=== PATIENT | female | born 1945 | race Caucasian/White ===

== ENCOUNTER 2017-12-27 15:09 | Inpatient (IN) | payer OTHER ==
[~2017-12-27] VITALS: Ht 160 cm; Wt 61.2 kg
--- NOTE | 2017-12-27 15:17 | NUR ---
PATIENT BIB BLS TO BED 9
[2017-12-27] MEDS ORDERED: NACL 0.9% 2,000 ML IV SCH (15:19)
[2017-12-27 15:20] VITALS: BP 80/46
[2017-12-27] MEDS ORDERED: ALBUTEROL 0.083% 2.5 MG/3 ML NEBU INH ONE (15:20)
[2017-12-27] MEDS ORDERED: methylPREDNISolone SS 125 MG/2 ML VIAL IVP ONE (15:30)
[2017-12-27] MEDS ORDERED: FAMOTIDINE 20 MG/2 ML VIAL IVP ONE (15:30)
[2017-12-27] MEDS ORDERED: FURO-572 PO (15:45)
[2017-12-27] MEDS ORDERED: OMEP20TC12 PO (15:45)
[2017-12-27] MEDS ORDERED: SYN.075 PO (15:45)
[2017-12-27] MEDS ORDERED: ALBU-118 IH (15:45)
[2017-12-27] MEDS ORDERED: METO25TE2 PO (15:45)
--- NOTE | 2017-12-27 15:51 | NUR ---
3 ATTEMPTS AT DRAWING ABGS WERE ATTEMPTED WITH NO SUCCESS DUE TO POOR BLOOD PRESSURE. BLOOD FLOW STOPPED BEFORE FILLING 1/2 CCS. PER MD REQUEST, ONCE BLOOD PRESSURE RISES, ABG WILL BE ATTAMPTED AGAIN.
--- NOTE | 2017-12-27 16:00 | NUR ---
RT AT BEDSIDE
--- NOTE | 2017-12-27 16:00 | NUR ---
PATIENT PRESENTS TO ED WITH BROUGHT IN BY EMS S/P SYNCOPE WHILE SHOPPING PT IN C-COLLAR SPINAL PRECAUTIONS EMS REPORTED PT HAD A LARGE EMESIS AND STOOL INCONTINENCE AT SYNCOPE ----LARGE AMOUNT OF LOOSE STOOL FROM BACK DOWN TO FEET DRY EMESIS TO CHIN AND CHEST--- AWAKE ANSWERING QUESTIONS BUT SLOW TO RESPOND AT THIS TIME---MOVING ALL EXTREMITIES EQUALLY. CURRENTLY DENIES HEADACHE OR N/V SKIN IS PINK/WARM/DRY;; LUNGS CLEAR BL; HR EVEN AND REGULAR; PT DENIES ANY FEVER, CP, SOB, OR COUGH AT THIS TIME; PATIENT STATES PAIN OF 0/10 AT THIS TIME; VSS; PATIENT POSITIONED FOR COMFORT; HOB ELEVATED; BEDRAILS UP X2; BED DOWN. ER MD MADE AWARE OF PT STATUS.
--- NOTE | 2017-12-27 16:02 | NUR ---
PT CLEANED WITH SOAPY WATER WITH HELP AND LOG ROLLED PT REQUIRED. PT ADMITS TOLERATED WITH MINIMAL TO NO DISCOMFORT. CONTINUES TO DENIE PAIN AT THIS TIME---- PT ADMITS FELT FAINT, DIZZY PRIOR TO SYNCOPE
--- NOTE | 2017-12-27 16:09 | NUR ---
LAB COLLECTING SAMPLES
--- NOTE | 2017-12-27 16:13 | NUR ---
CXR AT BEDSIDE
[2017-12-27 16:25] LABS: BASOPHILS % (AUTO) 0.2 % (0.0-2.0); EOSINOPHILS # (AUTO) 0.3 K/uL (0-0.4); EOSINOPHILS % (AUTO) 2.2 % (0.0-4.0); HEMATOCRIT 43.8 % (36-48); HEMOGLOBIN 14.5 g/dL (12.0-16.0); LYMPHOCYTES # (AUTO) 1.7 K/uL (2.5-16.5); LYMPHOCYTES % (AUTO) 12.9 % (20.5-51.1); MEAN CORPUSCULAR HEMOGLOBIN 31 pg (27-31); MEAN CORPUSCULAR HGB CONC 33 g/dL (33-37); MEAN CORPUSCULAR VOLUME 93.7 fL (80-94); MONOCYTES # (AUTO) 0.8 K/uL (0.8-1.0); MONOCYTES % (AUTO) 6.2 % (1.7-9.3); NEUTROPHILS # (AUTO) 10.4 K/uL (1.8-7.7); NEUTROPHILS % (AUTO) 78.5 % (42.2-75.2); PLATELET COUNT (AUTO) 227 K/uL (140-450); RED BLOOD CELL COUNT(AUTO) 4.68 MIL/uL (4.20-5.40); RED CELL DISTRIBUTION WIDTH 14.8 % (11.6-13.7); WHITE BLOOD COUNT (AUTO) 13.2 K/uL (4.8-10.8)
[2017-12-27] MEDS ORDERED: AZTREONAM 1,000 MG in DEXTROSE 5% 50 ML IV SCH (16:25)
[2017-12-27 16:48] LABS: ANION GAP 9.3 (8-16); CARBON DIOXIDE 30.3 mmol/L (21-32); CHLORIDE 106 mmol/L (98-107); CREATININE 1.3 mg/dL (0.6-1.3); GLUCOSE 101 mg/dL (74-106); POTASSIUM 3.6 mmol/L (3.5-5.1); SODIUM SERUM 142 mmol/L (136-145); UREA NITROGEN, BLOOD 23 mg/dL (7-18)
--- NOTE | 2017-12-27 16:49 | NUR ---
C-SPINE PRECAUTIONS CLEARED BY ---C-COLLAR REMOVED BY . PT ALERT HOLDS CONVERSATION WITH ME--DENIES HEADACHE, DIZZINESS, OR NAUSEA AT THIS TIME. WILL CONTINUE TO MONITOR FOR ANY CHANGES
[2017-12-27 16:50] LABS: PROTHROMBIN TIME 9.7 secs (10.8-13.4)
[2017-12-27 16:52] LABS: MAGNESIUM 2.3 mg/dL (1.8-2.4)
[2017-12-27 16:59] LABS: APPEARANCE,URINE CLEAR (CLEAR); BILIRUBIN,URINE NEGATIVE (NEGATIVE); BLOOD, URINE NEGATIVE (NEGATIVE); COLOR,URINE YELLOW (YELLOW); LEUKOCYTE ESTERASE ,URINE TRACE (NEGATIVE); NITRITE, URINE NEGATIVE (NEGATIVE); PH,URINE 6.5 (5.0-9.0); UGLUCOSE NEGATIVE (NEGATIVE)
--- NOTE | 2017-12-27 17:00 | NUR ---
PT TAKEN OFF THE UNIT VIA GURNEY BY SAFETY SUPERVISOR
[2017-12-27 17:02] LABS: ACETONE, SERUM NEGATIVE (NEGATIVE); ALBUMIN 3.5 g/dL (3.4-5.0); ASPARTATE AMINOTRANSFERASE 16 U/L (15-37); TOTAL BILIRUBIN 0.9 mg/dL (0.0-1.0)
[2017-12-27 17:07] LABS: RBC,URINE 3-10 (FEW) /HPF (0-5); WBC,URINE 6-15 (FEW) /HPF (0-5)
[2017-12-27] MEDS ORDERED: NACL 0.9% 1,000 ML IV ONE (17:15)
[2017-12-27] MEDS ORDERED: SODIUM BICARBONATE 8.4% PFS 50 MEQ/50 ML SYR IVP ONE (17:15)
[2017-12-27] MEDS ORDERED: diphenhydrAMINE 50 MG/ML VIAL IVP ONE (17:25)
--- NOTE | 2017-12-27 17:40 | NUR ---
[facility] IS NOT IN OUR [facility]---PHARMACY NOT IN HOUSE HOUSE SUP NOTIFIED--WILL ATTEMPT TO LOCATE IN OTHER DEPT
--- NOTE | 2017-12-27 18:20 | NUR ---
PT TO CT VIA [facility]
[2017-12-27] MEDS ORDERED: NACL 0.9% 1,000 ML IV SCH (18:41)
[2017-12-27] MEDS ORDERED: DOCUSATE SODIUM 100 MG GELCAP PO PRN ×2 (18:45→18:55)
[2017-12-27] MEDS ORDERED: ONDANSETRON 4 MG/2 ML VIAL IM/IVP PRN ×2 (18:45→18:55)
[2017-12-27] MEDS ORDERED: LORazepam 2 MG/ML VIAL IM/IVP PRN ×2 (18:45→18:55)
[2017-12-27] MEDS ORDERED: ACETAMINOPHEN 325 MG TAB PO PRN ×2 (18:45→18:55)
[2017-12-27] MEDS ORDERED: HYDROcodone/APAP 5/325 MG 1 TAB TAB PO PRN ×2 (18:45→18:55)
[2017-12-27] MEDS ORDERED: MORPHINE SULFATE 2 MG/ML SYR IVP PRN ×2 (18:45→18:55)
[2017-12-27] MEDS ORDERED: ZOLPIDEM 5 MG TAB PO PRN ×2 (18:45→18:55)
[2017-12-27] MEDS: NACL 0.9% 1,000 ML IV SCH (18:52)
--- NOTE | 2017-12-27 19:20 | NUR ---
pt ambulated to bathroom even steady gait.
[2017-12-27 19:58] LABS: BARBITURATE, URINE NEG. ng/ml (NEG <=200); BENZODIAZEPINE, URINE NEG. ng/mL (NEG <=200); CANNABINOID, URINE NEG. ng/mL (NEG <=50); COCAINE, URINE NEG. ng/mL (NEG <=300); OPIATE, URINE NEG. ng/mL (NEG <=2000); PHENCYCLIDINE SCREEN,URINE NEG. ng/mL (NEG <=25)
[2017-12-27 20:19] VITALS: BP 143/65
--- NOTE | 2017-12-27 20:19 | NUR ---
Patient will be admitted to care of DR MCDONNELL. Admited to TELE. Will go to room 119-A. Belongings list completed. Report to MARIETTA PETERSON.
--- NOTE | 2017-12-27 20:19 | NUR ---
RECEIVED BEDSIDE REPORT FROM NURSE BHAVYA. PT AWAKE, ALERT, ABLE TO FOLLOW COMMANDS AND MAKE NEEDS KNOWN, ON 2 L NC, IV IN RIGHT AC 20 G, INFUSING NS AT 100 ML/HR, DRESSING CHANGED D/T SOILED, V/S TAKEN ALL WITHIN NORMAL LIMITS. LEFT SKIN TEAR ON UPPER LEFT ARM. PICTURE TAKEN AND PLACED IN CHART, MRSA SCREEN COMPLETED AND SENT TO LAB. UPDATED BOARD, EXPLAINED PLAN OF CARE, PLACED BED IN LOWEST POSITION, CALL LIGHT WITHIN REACH, WILL CONTINUE TO MONITOR.
[2017-12-27] MEDS ORDERED: AZTREONAM 1,000 MG in DEXTROSE 5% 50 ML IV ONE (21:00)
[2017-12-27] MEDS ORDERED: guaiFENesin 600 MG TABER PO ONE (21:00)
[2017-12-27] MEDS ORDERED: MECLIZINE 25 MG TAB PO PRN (21:45)
[2017-12-27] MEDS ORDERED: cefTRIAXone 1,000 MG VIAL ONE (21:45)
--- NOTE | 2017-12-27 22:30 | NUR ---
PT RESTING IN BED NO SIGNS OF DISTRESS, WILL CONTINUE TO MONITOR.
[2017-12-27 23:28] LABS: CHOL/HDL RATIO 3.8 (1-4.5); FREE T4 (FREE THYROXINE) 1.24 ng/dL (0.76-1.46); PHOSPHORUS 4.6 mg/dL (2.5-4.9); THYROID STIMULATING HORMONE 6.12 uIU/mL (0.34-3.74)
[2017-12-28] VITALS: BP 126/58
--- NOTE | 2017-12-28 00:05 | NUR ---
ORTHOSTATIC BP ASSESSED. SUPINE: B/P 126/58 (76) HR 76 SITTING: B/P 139/72 (78) HR 94 STANDING: B/P 140/69 (92) HR 70 PT REPORTED NO DIZZINESS OR LIGHT HEADINESS WHEN CHANGING POSITION
--- NOTE | 2017-12-28 02:30 | NUR ---
FLUSHED IV WITH 10 ML NS D/T HIGH PRESSURE. WILL CONTINUE TO MONITOR.
[2017-12-28 04:00] VITALS: BP 130/66
--- NOTE | 2017-12-28 04:11 | NUR ---
PT AWAKE IN BED NO SIGNS OF DISTRESS, WILL CONTINUE TO MONITOR.
[2017-12-28] MEDS: NACL 0.9% 1,000 ML IV SCH ×2 (05:01→17:33)
[2017-12-28] MEDS: PANTOPRAZOLE 40 MG TABEC PO SCH (06:07)
[2017-12-28] MEDS: LEVOTHYROXINE 0.075 MG TAB PO SCH (06:07)
[2017-12-28] MEDS: ALBUTEROL SULFATE/IPRATROPIU 3 ML SOL IH SCH ×3 (06:23→18:57)
--- NOTE | 2017-12-28 06:23 | NUR ---
MS. DENSON WAS AWAKE AND ALERT WHEN I ENTERED AND VERBALIZED FEELING MUCH BETTER THAN THE DAY BEFORE. TREATMENT WAS ADMINISTERED WITH NO ADVERSE EFFECTS AND SHE WAS INFORMED SHE WOULD RECEIVE ANOTHER TREATMENT AT 1300.
--- NOTE | 2017-12-28 07:10 | NUR ---
ENDORSED PT TO DAY SHIFT NURSE PT STABLE.
[2017-12-28 08:00] VITALS: BP 141/62
--- NOTE | 2017-12-28 08:10 | NUR ---
PATIENT AMBULATED TO BATHROOM ON STEADY GAIT WITH STANDBY ASSISTANCE. PATIENT VOIDED AND AMBULATED BACK TO BED. WILL CONTINUE TO MONITOR PATIENT.
[2017-12-28] MEDS ORDERED: NON-FORMULARY ITEM (Omeprazole (Omeprazole) 20 MG) PO SCH (09:00)
[2017-12-28] MEDS: METOPROLOL 25 MG TAB PO SCH ×2 (09:30→21:00)
[2017-12-28] MEDS: LACTOBACILLUS RHAMNOSUS GG 1 EACH CAP PO SCH (09:30)
[2017-12-28] MEDS: FUROSEMIDE 20 MG TAB PO SCH (09:31)
--- NOTE | 2017-12-28 09:31 | NUR ---
ORDERED MEDICATIONS GIVEN. PATIENT TOLERATED IT WELL. RESPIRATIONS EVEN AND UNLABORED. SAFETY PRECAUTION IN PLACE, CALL LIGHT WITHIN REACH, WILL CONTINUE TO MONITOR PATIENT.
--- NOTE | 2017-12-28 09:34 | NUR ---
DR ORTEGA IN TO SEE THE PATIENT. WILL WAIT FOR HIS ASSESSMENT AND ORDERS.
[2017-12-28 10:34] LABS: BASOPHILS # (AUTO) 0.1 K/uL (0.00-0.22); BASOPHILS % (AUTO) 0.2 % (0.0-2.0); LYMPHOCYTES # (AUTO) 0.4 K/uL (2.5-16.5); MEAN CORPUSCULAR HEMOGLOBIN 32 pg (27-31); MEAN CORPUSCULAR HGB CONC 33 g/dL (33-37); MEAN CORPUSCULAR VOLUME 94.3 fL (80-94); MONOCYTES # (AUTO) 0.6 K/uL (0.8-1.0); NEUTROPHILS # (AUTO) 22.4 K/uL (1.8-7.7); PLATELET COUNT (AUTO) 204 K/uL (140-450); RED BLOOD CELL COUNT(AUTO) 4.45 MIL/uL (4.20-5.40); RED CELL DISTRIBUTION WIDTH 14.8 % (11.6-13.7); WHITE BLOOD COUNT (AUTO) 23.4 K/uL (4.8-10.8)
--- NOTE | 2017-12-28 10:44 | NUR ---
PATIENT OFF TO RADIOLOGY. PATIENT IN STABLE CONDITION.
--- NOTE | 2017-12-28 11:05 | NUR ---
PATIENT BACK FROM RADIOLOGY, WILL WAIT FOR RESULTS.
--- NOTE | 2017-12-28 11:10 | NUR ---
PATIENT DOING THEIR ROUNDS. WILL WAIT FOR THEIR UPDATED ORDERS.
[2017-12-28 11:16] LABS: ANION GAP 14.3 (8-16); CARBON DIOXIDE 24.5 mmol/L (21-32); CHLORIDE 106 mmol/L (98-107); CREATININE 1.3 mg/dL (0.6-1.3); GLUCOSE 226 mg/dL (74-106); POTASSIUM 3.8 mmol/L (3.5-5.1); SODIUM SERUM 141 mmol/L (136-145); UREA NITROGEN, BLOOD 17 mg/dL (7-18)
[2017-12-28 11:44] LABS: LYMPHOCYTES % (AUTO) 1.8 % (20.5-51.1); MONOCYTES % (AUTO) 2.5 % (1.7-9.3); NEUTROPHILS % (AUTO) 95.5 % (42.2-75.2)
[2017-12-28 12:00] VITALS: BP 126/62
[2017-12-28] MEDS: PIPER/TAZO 2.25GM/D5W PREMIX 50 ML IV SCH ×2 (13:35→17:38)
--- NOTE | 2017-12-28 13:35 | NUR ---
NEW IV INSERTED IN LEFT UPPER ARM 22G, INTACT, ASYMPTOMATIC AND PATENT, AFTER 3 ATTEMPTS. PATIENT TOLERATED IT WELL. IVPB MEDICATION ADMINISTERED. PATIENT TOLERATED IT WELL. RESPIRATIONS EVEN AND UNLABORED. PATIENT DENIES PAIN. SAFETY PRECAUTION IN PLACE, CALL LIGHT WITHIN REACH, WILL CONTINUE TO MONITOR PATIENT.
--- NOTE | 2017-12-28 13:45 | NUR ---
PATIENT HAS ORDERS FOR SPUTUM COLLECTION. INSTRUCTED PATIENT ON INDUCTION AND LEFT CONTAINER BY BEDSIDE WITH INSTRUCTIONS TO LET NURSE KNOW WHEN IT WAS OBTAINED, ALTHOUGH PATIENT EXPRESSED HAVING ONLY AN OCCASIONAL DRY COUGH.
[2017-12-28 16:00] VITALS: BP 126/51
--- NOTE | 2017-12-28 17:38 | NUR ---
ORDERED MEDICATION GIVEN. PATIENT TOLERATING IT WELL. PATIENT'S SITTING UP IN BED EATING DINNER. WILL CONTINUE TO MONITOR PATIENT.
--- NOTE | 2017-12-28 18:13 | NUR ---
PATIENT'S SISTER MARISA MENENDEZ CALLED, LEFT HER PHONE # [phone]. UPDATED HER ON PATIENT'S STATUS, SHE VERBALIZED UNDERSTANDING AND SAID THAT SHE WILL CALL BACK TOMORROW FOR POSSIBLE DISCHARGE SO SHE CAN PICK PATIENT UP.
--- NOTE | 2017-12-28 19:10 | NUR ---
placed on nasal cannula 2lpm due to sao2 was 91%
--- NOTE | 2017-12-28 19:23 | NUR ---
REPORT GIVEN TO PLASTIC TOOL MAKER NURSE AT BEDSIDE FOR CONTINUITY OF CARE. PATIENT IN STABLE CONDITION.
--- NOTE | 2017-12-28 19:25 | NUR ---
RECEIVED PT FROM ILYA RN PT IS AAOX4 AMBULATORY IV ON LEFT UA INFUSING WELL ON TELEMETRY SR SKIN TEAR HEALING ON PROGRESS ON LEFT ARM NOT SOB NOTED INITIAL ASSESSMENT DONE
[2017-12-28 20:00] VITALS: BP 108/48
[2017-12-28] MEDS ORDERED: CEPHALEXIN 500 MG CAP PO SCH (21:00)
--- NOTE | 2017-12-28 22:30 | NUR ---
PT AMBULATES TO THE RESTROOM VOIDING WELL NOT DISTRESS NOTED VERBALIZED NOT TO HAVE ANY PRODUCTIVE COUGH, THEN SHE CAN NOT GIVE A SPUTUM SAMPLE
[2017-12-29] VITALS: BP 144/60
[2017-12-29] MEDS: PIPER/TAZO 2.25GM/D5W PREMIX 50 ML IV SCH ×3 (00:02→11:56)
--- NOTE | 2017-12-29 01:00 | NUR ---
PT SLEEPING WELL IV ONLEFT ARMM INFUSING WELL NOT SIGNS OF DISTRESS NOTED ON TELEMETRY SR
[2017-12-29 04:00] VITALS: BP 144/72
--- NOTE | 2017-12-29 04:00 | NUR ---
SPONGE BATH GIVEN LINEN CHANGED DENIES ANY PAIN ON TELEMETRY SR IV ON LEFT UA INFUSIG WELL
[2017-12-29] MEDS: PANTOPRAZOLE 40 MG TABEC PO SCH (05:48)
[2017-12-29] MEDS: LEVOTHYROXINE 0.075 MG TAB PO SCH (05:49)
[2017-12-29 06:37] LABS: BASOPHILS % (AUTO) 0.2 % (0.0-2.0); EOSINOPHILS # (AUTO) 0.1 K/uL (0-0.4); EOSINOPHILS % (AUTO) 0.8 % (0.0-4.0); HEMOGLOBIN 12.7 g/dL (12.0-16.0); LYMPHOCYTES # (AUTO) 1.7 K/uL (2.5-16.5); LYMPHOCYTES % (AUTO) 9.8 % (20.5-51.1); MEAN CORPUSCULAR HEMOGLOBIN 32 pg (27-31); MEAN CORPUSCULAR HGB CONC 33 g/dL (33-37); MEAN CORPUSCULAR VOLUME 94.5 fL (80-94); MONOCYTES # (AUTO) 0.8 K/uL (0.8-1.0); MONOCYTES % (AUTO) 4.9 % (1.7-9.3); NEUTROPHILS # (AUTO) 14.4 K/uL (1.8-7.7); NEUTROPHILS % (AUTO) 84.3 % (42.2-75.2); PLATELET COUNT (AUTO) 182 K/uL (140-450); RED BLOOD CELL COUNT(AUTO) 4.02 MIL/uL (4.20-5.40); RED CELL DISTRIBUTION WIDTH 14.8 % (11.6-13.7); WHITE BLOOD COUNT (AUTO) 17.1 K/uL (4.8-10.8)
--- NOTE | 2017-12-29 06:37 | NUR ---
PT REMAIN STABLE DENIES ANY PAIN OR DISTRESS IV ON LEFT AC INFUSING WELL ON TELMETRY SR PT AMBULATORY AAOX4
[2017-12-29 06:59] LABS: ANION GAP 10.3 (8-16); CARBON DIOXIDE 30.1 mmol/L (21-32); CHLORIDE 109 mmol/L (98-107); CREATININE 1.3 mg/dL (0.6-1.3); GLUCOSE 83 mg/dL (74-106); POTASSIUM 3.4 mmol/L (3.5-5.1); SODIUM SERUM 146 mmol/L (136-145); UREA NITROGEN, BLOOD 19 mg/dL (7-18)
[2017-12-29] MEDS: ALBUTEROL SULFATE/IPRATROPIU 3 ML SOL IH SCH ×3 (07:16→19:00)
--- NOTE | 2017-12-29 07:17 | NUR ---
PATIENT WAS AWAKE AND ALERT. TREATMENT WAS TOLERATED WELL AND HAD O2 SATURATIONS OF 96% ON RA. LEFT 1L NASAL CANNULA AT BEDSIDE SHOULD PATIENT EXPERIENCE SHORTNESS OF BREATH.
--- NOTE | 2017-12-29 07:18 | NUR ---
RECEIVED REPORT FROM THE CHEF DE FROID NURSE AT BEDSIDE FOR CONTINUITY OF CARE. PT IS AWAKE AND ORIENTED. INTRODUCED MYSELF AND UPDATED THE BOARD. PT IS GETTING BREATHING TX AT THIS TIME. R/T AT BEDSIDE. PT HAS IV ON L UA NS AT 60ML/HR. SKIN, SCAB ON UPPER EXTREMITIES. COUGHING, DRY. NO SPUTUM. WILL TRY TO COLLECT SPUTUM FOR CULTURE. LBM 12/28. WBC STILL ELEVATED. ON DOWN TREND. DENIES DIZZINESS. AMBULATES TO THE BATHROOM. STEADY. WILL CONTINUE TO MONITOR PT.
[2017-12-29 08:00] VITALS: BP 140/97
--- NOTE | 2017-12-29 08:46 | NUR ---
PATIENT HAS BEEN SCREENED AND CATEGORIZED HIGH NUTRITION RISK. PATIENT WILL BE SEEN WITHIN 1-2 DAYS OF ADMISSION. 12/29/[address]
[2017-12-29] MEDS ORDERED: POTASSIUM CHLORIDE 10 MEQ TABER PO SCH (08:47)
[2017-12-29] MEDS: FUROSEMIDE 20 MG TAB PO SCH (09:07)
[2017-12-29] MEDS: LACTOBACILLUS RHAMNOSUS GG 1 EACH CAP PO SCH (09:07)
[2017-12-29] MEDS: METOPROLOL 25 MG TAB PO SCH ×2 (09:08→20:14)
--- NOTE | 2017-12-29 09:10 | NUR ---
ADMINISTERED MORNING MEDS. PT TOLERATED WELL. EDUCATED PT RE PROBIOTICS. WILL CONTINUE TO MONITOR PTL.
[2017-12-29] MEDS: NACL 0.9% 1,000 ML IV SCH (10:30)
--- NOTE | 2017-12-29 11:11 | NUR ---
PT IS SITTING UP IN BED, WATCHING TV. NO SIGNS OF DISTRESS. REQUESTED A NEW GOWN. SHE COUGHED AND HAS STRESS INCONTINENCE. GAVE HER A FRESH GOWN. PT HAS NO COMPLAINTS AT THIS TIME. WILL CONTINUE TO MONITOR PT.
[2017-12-29 13:12] VITALS: BP 145/64
--- NOTE | 2017-12-29 13:19 | NUR ---
PATIENT IS AWAKE AND CALM, FULLY ORIENTED AND IN NO DISTRESS. O2 SATURATIONS ON ROOM AIR WERE 91%, PULSE 75 AND RATE OF 16 WITH GREAT AERATION HEARD IN BOTH LUNG KRUSE. PATIENT WAS PLACED ON NASAL CANNULA ONCE TREATMENT WAS OVER TO KEEP SATURATIONS ABOVE 92%
--- NOTE | 2017-12-29 13:45 | NUR ---
12/29/17 RD INITIAL ASSESSMENT COMPLETED PLEASE REFER TO NUTRITION ASSESSMENT UNDER CARE ACTIVITY FOR ESTIMATED NUTRITIONAL NEEDS. 1. CONTINUE CARDIAC DIET TOLERATED 2. PROVIDED HEALTHY FATS AND LOW SODIUM DIET EDUCATION 3. RD TO FOLLOW-UP 5-7 DAYS, LOW RISK CHERIE HAGER, RD
--- NOTE | 2017-12-29 13:49 | NUR ---
PT SITTING UP, TALKING ON THE PHONE. NO SIGNS OF DISTRESS. NO COMPLAINTS. WILL CONTINUE TO MONITOR PT.
[2017-12-29] MEDS ORDERED: CLINICAL MONITORING MC PRN (15:15)
--- NOTE | 2017-12-29 15:23 | NUR ---
ADMISSION CHART REVIEW DONE FAXED INITIAL REVIEW TO [facility] [phone] PHONE RICCARDO [phone]
[2017-12-29 16:00] VITALS: BP 146/70
[2017-12-29] MEDS: AMPICILLIN/SULBACTAM 3 GM in NACL 0.9% 100 ML IV SCH ×2 (17:51→23:24)
--- NOTE | 2017-12-29 17:57 | NUR ---
ADMINISTERED SCHEDULED UNASYN ABX. PT ALSO REQUESTED NO MORE IVF, D/T FREQUENT URINATION. SPOKE TO DR LORNE MD DC'D THE FLUIDS. PT TOLERATING WELL. WILL CONTINUE TO MONITOR PT.
--- NOTE | 2017-12-29 19:15 | NUR ---
ENDORSED PT TO THE CHARGING MACHINE OPERATOR NURSE AT BEDSIDE FOR CONTINUITY OF CARE. PT IS IN STABLE CONDITION.
--- NOTE | 2017-12-29 19:20 | NUR ---
RECEIVED PT AWAKE, AOX4,VITAL SIGNS STABLE, SAT-93% ON ROOM AIR, NO SOB NOTED, OCCASIONAL DRY COUGH NOTED, UNABLE TO COLLECT SPUTUM AT THIS TIME, PLAN OF CARE DISCUSSED, SAFETY MEASURES IN PLACE, CALL LIGHT WITHIN REACH.
--- NOTE | 2017-12-29 19:50 | NUR ---
PATIENT AWAKE AND ALERT. PATIENT ON ROOM AIR WHEN ENTERED ROOM SPO2 92% HEART RATE 74. APPEARED COMFORTABLE WITH NO RESPIRATORY DISTRESS OR SOB. PATIENT TOLERATED TX WELL WITH NO ADVERSE EFFECTS. B/S: CLEAR BILATERALLY PRE AND POST TX.
[2017-12-29 20:00] VITALS: BP 121/58
--- NOTE | 2017-12-29 20:20 | NUR ---
PT AMBULATORY TO BR WITH STEADY GAIT, NO DIZZINESS NOTED, DUE MEDICATION ADMINISTERED WITH EDUCATION PROVIDED, ALL NEEDS ATTENDED.
[2017-12-30] VITALS: BP 119/57
--- NOTE | 2017-12-30 | NUR ---
PT SLEEPING, EASILY AROUSABLE, VITAL SIGNS STABLE, DUE UNASYN IVPB INFUSING WELL, DENIES PAIN, NO SOB NOTED, CONTINUE TO MONITOR CLOSELY.
--- NOTE | 2017-12-30 02:20 | NUR ---
PT COMPLAINING LT UA IV LINE HURTING, FLUSHES WELL, IV LINE DC WITH CANNULA INTACT, WILL START ANOTHER LINE LATER.
[2017-12-30 04:00] VITALS: BP 100/60
--- NOTE | 2017-12-30 05:40 | NUR ---
NEW IV LINE STARTED TO LEFT HAND WITH GOOD BLOOD RETURN, UNASYN IVPB ADMINISTERED, DUE PO MEDS GIVEN, ORANGE JUICE PROVIDED PER REQUEST, NO DISTRESS AT THIS TIME.
[2017-12-30] MEDS: AMPICILLIN/SULBACTAM 3 GM in NACL 0.9% 100 ML IV SCH ×3 (05:41→17:30)
[2017-12-30] MEDS: LEVOTHYROXINE 0.075 MG TAB PO SCH (05:41)
[2017-12-30] MEDS: PANTOPRAZOLE 40 MG TABEC PO SCH (05:41)
--- NOTE | 2017-12-30 06:40 | NUR ---
CHEST X-RAY DONE AT BEDSIDE, PT REQUESTING TO HAVE TELE MONITOR OFF, WILL ENDORSE TO NEXT SHIFT.
[2017-12-30] MEDS: ALBUTEROL SULFATE/IPRATROPIU 3 ML SOL IH SCH ×3 (06:50→18:42)
[2017-12-30 07:00] LABS: BASOPHILS # (AUTO) 0.1 K/uL (0.00-0.22); BASOPHILS % (AUTO) 0.5 % (0.0-2.0); EOSINOPHILS # (AUTO) 0.5 K/uL (0-0.4); EOSINOPHILS % (AUTO) 3.1 % (0.0-4.0); HEMATOCRIT 48.8 % (36-48); HEMOGLOBIN 16.4 g/dL (12.0-16.0); LYMPHOCYTES # (AUTO) 1.5 K/uL (2.5-16.5); LYMPHOCYTES % (AUTO) 9.9 % (20.5-51.1); MEAN CORPUSCULAR HEMOGLOBIN 32 pg (27-31); MEAN CORPUSCULAR HGB CONC 34 g/dL (33-37); MONOCYTES % (AUTO) 6.5 % (1.7-9.3); NEUTROPHILS # (AUTO) 12.5 K/uL (1.8-7.7); PLATELET COUNT (AUTO) 221 K/uL (140-450); RED BLOOD CELL COUNT(AUTO) 5.19 MIL/uL (4.20-5.40); RED CELL DISTRIBUTION WIDTH 14.7 % (11.6-13.7); WHITE BLOOD COUNT (AUTO) 15.7 K/uL (4.8-10.8)
--- NOTE | 2017-12-30 07:24 | NUR ---
PT AWAKE, NO DISTRESS NOTED, REPORT GIVEN TO MARIETTA ESCOBAR FOR CONTINUITY OF CARE.
--- NOTE | 2017-12-30 07:25 | NUR ---
RECEIVED PT FROM THE TELECOM NETWORK MANAGER NURSE AT BEDSIDE FOR CONTINUITY OF CARE. PT IS AWAKE AND ORIENTED. INTRODUCED MYSELF AND UPDATED THE BOARD. PT HAS SKIN TEARS ON L ARM FROM S/P FALL AT HOME. LBM WAS YESTERDAY. IV ON F HAND 22F TKO. V/S WITHIN NORMAL RANGE. DENIES DIZZINESS OR EPISODES OF SYNCOPE. DENIES PAIN AT THIS TIME. PLAN FOR TODAY: MONITOR VS AND ADMINISTER ABX. WILL CONTINUE TO MONITOR PT. PT WISHES TO HAVE TELE MONITOR OFF, THE STICKERS ARE STARTING TO IRRITATE SKIN. WILL TALK TO MD REGARDING ISSUE.
[2017-12-30 08:00] VITALS: BP 104/68
[2017-12-30 08:03] LABS: ANION GAP 12.9 (8-16); CARBON DIOXIDE 30.3 mmol/L (21-32); CHLORIDE 103 mmol/L (98-107); CREATININE 1.3 mg/dL (0.6-1.3); GLUCOSE 117 mg/dL (74-106); POTASSIUM 4.2 mmol/L (3.5-5.1); SODIUM SERUM 142 mmol/L (136-145); UREA NITROGEN, BLOOD 20 mg/dL (7-18)
[2017-12-30] MEDS: LACTOBACILLUS RHAMNOSUS GG 1 EACH CAP PO SCH (09:07)
[2017-12-30] MEDS: METOPROLOL 25 MG TAB PO SCH (09:07)
[2017-12-30] MEDS: FUROSEMIDE 20 MG TAB PO SCH (09:07)
--- NOTE | 2017-12-30 09:09 | NUR ---
ADMINISTERED MORNING MEDS. PT TOLERATED WELL. WILL CONTINUE TO MONITOR PT.
--- NOTE | 2017-12-30 10:06 | NUR ---
PT WAS IN THE BATHROOM, MINE EXPERT HOLDING PT UP. PT HAD PASSED OUT ON THE TOILET. CALLED RAPID RESPONSE. PT CAME TO RIGHT AWAY. PT WAS ABLE TO WALK BACK TO THE BED. V/S STABLE. BS STABLE. PT ORIENTED. DR ORTEGA ASSESSED PT. ORDERED ORTHOSTATIC V/S. WILL DO SO LATER WHEN SHE IS MORE STABLE. STARTED IVF AT 100ML. OK PER . MINE EXPERT WITH PT NOW. CHANGING HER GOWN. WILL CONTINUE TO MONITOR PT.
--- NOTE | 2017-12-30 10:30 | NUR ---
EKG DONE. GAVE REPORT TO DR ORTEGA.
[2017-12-30] MEDS ORDERED: NACL 0.9% 500 ML IV SCH (10:50)
[2017-12-30] MEDS ORDERED: ASPIRIN 81 MG TAB.CHEW PO SCH (11:24)
--- NOTE | 2017-12-30 11:34 | NUR ---
GAVE ASPIRIN AND NS 500ML BOLUS. PT TOLERATING WELL. PT FEELING BETTER.
[2017-12-30 12:00] VITALS: BP 137/53
--- NOTE | 2017-12-30 13:04 | NUR ---
FAXED CONCURRENT REVIEW TO [facility] [phone] PHONE RICCARDO [phone]
--- NOTE | 2017-12-30 15:30 | NUR ---
TRIED DOING THE ORTHOSTATIC BP. AFTER STANDING UP FOR LESS THAN 5 MIN PT FELT LIKE SHE WAS GOING TO PASS OUT AGAIN. GOT HER BACK IN BED. WILL TRY AGAIN.
[2017-12-30 16:00] VITALS: BP 118/61
--- NOTE | 2017-12-30 17:30 | NUR ---
PT C/O LIGHTHEADEDNESS. CHECKED BS. 95. WILL CONTINUE TO MONITOR PT.
--- NOTE | 2017-12-30 17:52 | NUR ---
PT EATING DINNER. PT WOULD LIKE TO THE ORTHOSTATIC BP AFTER DINNER. SHE IS HUNGRY AND A BIT LIGHT HEADED.
--- NOTE | 2017-12-30 19:19 | NUR ---
ENDORSED PT TO THE FASHION DIRECTOR PARTY PLAN SALES NURSE AT BEDSIDE FOR CONTINUITY OF CARE. PT IS IN STABLE CONDITION. ALSO ENDORSED THE ORTHOSTATIC BP. GAVE SPECIFIC INSTRUCTIONS THAT WAS GIVEN BY DR GORDON.
--- NOTE | 2017-12-30 19:20 | NUR ---
RECEIVED PT AWAKE ON BED, DENIES ANY PAIN OR SOB, NO DIZZINESS WHILE AT REST, PLAN OF CARE DISCUSSED, SAFETY MEASURES IN PLACE, CALL LIGHT WITHIN REACH.
[2017-12-30 20:30] VITALS: BP_SYST 96; BP_SYST 99; BP_DIAS 47; BP_DIAS 52
--- NOTE | 2017-12-30 20:30 | NUR ---
ORTHOSTATIC VITAL SIGNS TAKEN, LYING DOWN:BP-99/47, HR-74, SITTING ON SIDE OF BED:BP-96/52, HR-82, WHILE STANDING FOR 2 MINUTES PT STARTING TO HAVE DIZZINESS, ASSISTED BACK TO BED AND PUT ON SUPINE POSITION, BP-109/46, HR-75, PT FEELING BETTER AFTER GOING BACK TO BED, MONITORED CLOSELY.
[2017-12-30] MEDS: METOPROLOL SUCCINATE 50 MG TABER PO SCH (21:00)
[2017-12-30] MEDS: APIXABAN 2.5 MG TAB PO SCH (21:34)
--- NOTE | 2017-12-30 21:35 | NUR ---
DR CORTES MADE AWARE OF PT'S BP-99/47 (LYING DOWN) AND BP-96/52 (SITTING), AND STATED OK TO HOLD METOPROLOL PO FOR TONIGHT, DUE ELIQUIS PO ADMINISTERED WITH EDUCATION PROVIDED, ALL NEEDS ATTENDED.
--- NOTE | 2017-12-30 22:26 | NUR ---
PT TOOK OFF TELE MONITOR AND REFUSED TO PUT IT BACK STATED THE ADHESIVE ON THE TELE PATCH MADE HER ITCH, RISK AND BENEFITS EXPLAINED BUT STILL REFUSING, DR CORTES IS AWARE.
[2017-12-31] VITALS: BP 100/48
--- NOTE | 2017-12-31 00:30 | NUR ---
PT SLEEPING, EASILY AROUSABLE, VITAL SIGNS TAKEN, BP STABLE BUT ON THE LOW SIDE, DENIES PAIN, NO SOB NOTED, STILL REFUSING TELE MONITOR, IV ANTIBIOTIC INFUSING WELL, CONTINUE TO MONITOR CLOSELY.
[2017-12-31 04:00] VITALS: BP 117/52
--- NOTE | 2017-12-31 04:00 | NUR ---
PT AWAKE, VITAL SIGNS STABLE, DENIES PAIN, AMBULATED TO BR WITH STEADY GAIT ACCOMPANIED BY BRAKE LINING CURER, DENIES DIZZINESS AT THIS TIME, MONITORED CLOSELY.
[2017-12-31] MEDS: AMPICILLIN/SULBACTAM 3 GM in NACL 0.9% 100 ML IV SCH ×5 (05:38→17:32)
[2017-12-31] MEDS: LEVOTHYROXINE 0.075 MG TAB PO SCH (05:39)
[2017-12-31] MEDS: PANTOPRAZOLE 40 MG TABEC PO SCH (05:39)
--- NOTE | 2017-12-31 05:50 | NUR ---
PT COMPLAINING OF PAIN IN THE IV SITE, SITE WITH NO SIGNS OF PHLEBITIS, FLUSHES WELL WITH GOOD BLOOD RETURN, RE-TAPED DONE AND WRAPPED WITH ROLLED GAUZE, VERBALIZED FEELING BETTER, DUE MEDS ADMINISTERED, ORANGE JUICE PROVIDED WITH REQUEST, PT STATED SLIGHT DIZZINESS ONLY WHEN CHANGING POSITION FROM SUPINE TO SITTING AND SITTING TO STANDING, MONITORED CLOSELY.
[2017-12-31 06:34] LABS: BASOPHILS # (AUTO) 0.1 K/uL (0.00-0.22); BASOPHILS % (AUTO) 0.9 % (0.0-2.0); EOSINOPHILS # (AUTO) 0.5 K/uL (0-0.4); EOSINOPHILS % (AUTO) 4.8 % (0.0-4.0); HEMATOCRIT 41.8 % (36-48); HEMOGLOBIN 14.3 g/dL (12.0-16.0); LYMPHOCYTES # (AUTO) 1.7 K/uL (2.5-16.5); LYMPHOCYTES % (AUTO) 15.3 % (20.5-51.1); MEAN CORPUSCULAR HEMOGLOBIN 32 pg (27-31); MEAN CORPUSCULAR HGB CONC 34 g/dL (33-37); MEAN CORPUSCULAR VOLUME 93.1 fL (80-94); MONOCYTES # (AUTO) 0.9 K/uL (0.8-1.0); MONOCYTES % (AUTO) 8.1 % (1.7-9.3); NEUTROPHILS # (AUTO) 8.1 K/uL (1.8-7.7); NEUTROPHILS % (AUTO) 70.9 % (42.2-75.2); PLATELET COUNT (AUTO) 196 K/uL (140-450); RED BLOOD CELL COUNT(AUTO) 4.49 MIL/uL (4.20-5.40); RED CELL DISTRIBUTION WIDTH 14.8 % (11.6-13.7); WHITE BLOOD COUNT (AUTO) 11.4 K/uL (4.8-10.8)
[2017-12-31 06:38] LABS: ANION GAP 10.7 (8-16); CARBON DIOXIDE 31.4 mmol/L (21-32); CHLORIDE 105 mmol/L (98-107); CREATININE 1.1 mg/dL (0.6-1.3); GLUCOSE 86 mg/dL (74-106); POTASSIUM 5.1 mmol/L (3.5-5.1); SODIUM SERUM 142 mmol/L (136-145); UREA NITROGEN, BLOOD 17 mg/dL (7-18)
--- NOTE | 2017-12-31 07:25 | NUR ---
PT AWAKE, NO DISTRESS NOTED, REPORT GIVEN TO RN SITAL FOR CONTINUITY OF CARE.
[2017-12-31 08:00] VITALS: BP_SYST 112; BP_SYST 113; BP_DIAS 62
[2017-12-31] MEDS: ALBUTEROL SULFATE/IPRATROPIU 3 ML SOL IH SCH ×3 (08:35→18:44)
[2017-12-31] MEDS ORDERED: METOPROLOL SUCCINATE 50 MG TABER PO SCH ×2 (09:00)
[2017-12-31] MEDS ORDERED: LACTOBACILLUS RHAMNOSUS GG 1 EACH CAP PO SCH (09:00)
--- NOTE | 2017-12-31 09:00 | NUR ---
ADMINISTERED MEDS TO PT ORDERED. TOLERATED WELL. PT HIGH FALL RISK. EDUCATED PT TO CHANGE POSITION SLOWLY, USE CALL LIGHT FOR ANY HELP. PT AOX4, DENIES ANY DIZZINESS. NO SIGN OF DISTRESS. BED ALARM ON, FALL SIGN POSTED . PLACED CALL LIGHT WITHIN PT REACH. INFORMED HER TO USE FOR ANY HELP. VERBALIZED UNDERSTANDING. WILL CONTINUE TO MONITOR PT.
[2017-12-31] MEDS ORDERED: SODIUM CHLORIDE 1 GM TAB PO SCH (09:12)
[2017-12-31] MEDS: LACTOBACILLUS RHAMNOSUS GG 1 EACH CAP PO SCH (09:19)
[2017-12-31] MEDS: ASPIRIN 81 MG TAB.CHEW PO SCH (09:19)
[2017-12-31] MEDS: APIXABAN 2.5 MG TAB PO SCH ×2 (09:24→20:58)
--- NOTE | 2017-12-31 11:00 | NUR ---
CHECKED ON PT . SITING ON HER BED. DENIES ANY DIZZINESS AT THIS TIME. NO DISTRESS NOTED. EDUCATED PT ON FALL PRECAUTION. INFORMED HER TO USE CALL LIGHT FOR NAY HELP. VERBALIZED UNDERSTANDING. WILL CONTINUE TO MONITOR PT.
[2017-12-31 12:00] VITALS: BP 115/54
--- NOTE | 2017-12-31 12:15 | NUR ---
CHANGED THE TEGADERM ON PT RT WRIST, SKIN TEAR PRESENT, NO BLEEDING. PLACED VALTEX, KEPT DYNAMITER. CHARGE NURSE AWARE. STATES TO MONITOR THE SKI TEAR. NO SIGN OF DISTRESS NOTED. PT DENIES ANY DIZZINESS. DENIES PAIN AT THE RT WRIST.WILL CONTINUE TO MONITOR PT.
--- NOTE | 2017-12-31 12:44 | NUR ---
FAXED CONCURRENT REVIEW TO [facility] [phone] PHONE RICCARDO [phone]
--- NOTE | 2017-12-31 13:00 | NUR ---
CHECKED ON PT. PUBLIC SAFETY TELECOMMUNICATOR AT THE BEDSIDE. PT TO WALK AROUND THE HALLWAY OF NURSING STATION WITH PUBLIC SAFETY TELECOMMUNICATOR. DENIED ANY DIZZINESS. PT BACK TO BED. TOLERATED WALKING WELL.PLACED CALL LIGHT NEAR PT. INFORMED TO USE THE CALL LIGHT FOR ANY HELP. WILL CONTINUE TO MONITOR PT.
[2017-12-31 16:00] VITALS: BP 136/82
--- NOTE | 2017-12-31 17:30 | NUR ---
CHECKED ON PT. STANDING NEAR WINDOW, LOOKING OUTSIDE. PT HAS STEADY GAIT, WALKED BACK TO BED HERSELF. DENIES ANY DIZZINESS. ADMINISTERED ABX ORDERED. NO SIGN OF DISTRESS NOTED WILL CONTINUE TO MONITOR PT.
--- NOTE | 2017-12-31 19:26 | NUR ---
RECEIVED REPORT FROM PM NURSE AT BEDSIDE. PT DX ANS D/O, UTI, CC OF SYNCOPE EPISODE. PT HAS BRUISE ON RT WRIST, SMALL BLOOD CLOT , HAS TEGADERM PLACED ON IT. PM NURSE AWARE. TALKED TO DR. ORTEGA , STATES TO CHANGE THE BANDAGE IF BLEEDS TOO MUCH. CHARGE NURSE AWARE. WILL CONTINUE TO MONITOR THE BRUISE ON RT WRIST. PT DENIES ANY DIZZINESS AT THIS TIME. HAS LF WRIST WRAPPED FOR IV ACCESS NOT BE DISLODGED. ALL SAFETY MEASURE IN PLACE. INFORMED PT TO USE CALL LIGHT FOR ANY HELP. VERBALISED UNDERSTANDING.WILL CONTINUE TO MONITOR PT. Addendum: 12/31/17 at 4 by Abundio Zambrano RN TIME OF REPORT RECEIVED AT 2226.
--- NOTE | 2017-12-31 19:30 | NUR ---
RECEIVED REPORT FROM DAY SHIFT NURSE SITAL. PT AWAKE AND ALERT, ABLE TO MAKE NEEDS KNOWN, NOTED BRUISE ON RIGHT WRIST, TEGADERM DRESSING INTACT, PT DENIES PAIN. CHARGE NURSE AWARE. WILL CONTINUE TO MONITOR. LEFT HAND 22 G, SL, PATENT AND DRESSING INTACT. UPDATED BOARD, EXPLAINED PLAN OF CARE, WILL CONTINUE TO MONITOR, CALL LIGHT WITHIN REACH.
[2017-12-31 20:00] VITALS: BP 143/67
[2017-12-31] MEDS: METOPROLOL SUCCINATE 50 MG TABER PO SCH (20:55)
--- NOTE | 2017-12-31 20:55 | NUR ---
DUE MEDICATIONS GIVEN, QUESTIONS ANSWERED, WILL CONTINUE TO MONITOR.
[2018-01-01] VITALS: BP 126/54
[2018-01-01] MEDS: AMPICILLIN/SULBACTAM 3 GM in NACL 0.9% 100 ML IV SCH ×3 (00:54→11:21)
--- NOTE | 2018-01-01 00:54 | NUR ---
DUE MEDICATION GIVEN, PT TOLERATING WELL. V/S TAKEN ALL WITHIN BASELINE.
--- NOTE | 2018-01-01 02:59 | NUR ---
PT SLEEPING IN BED NO SIGNS OF DISTRESS, CALL LIGHT WITHIN REACH, BED IN LOWEST POSITION, WILL CONTINUE TO MONITOR.
[2018-01-01 04:00] VITALS: BP 130/60
[2018-01-01] MEDS: PANTOPRAZOLE 40 MG TABEC PO SCH (05:55)
[2018-01-01] MEDS: LEVOTHYROXINE 0.075 MG TAB PO SCH (05:55)
[2018-01-01 06:36] LABS: BASOPHILS # (AUTO) 0.1 K/uL (0.00-0.22); BASOPHILS % (AUTO) 1.2 % (0.0-2.0); EOSINOPHILS # (AUTO) 0.6 K/uL (0-0.4); EOSINOPHILS % (AUTO) 5.4 % (0.0-4.0); HEMATOCRIT 43.2 % (36-48); HEMOGLOBIN 14.3 g/dL (12.0-16.0); LYMPHOCYTES # (AUTO) 1.2 K/uL (2.5-16.5); LYMPHOCYTES % (AUTO) 10.5 % (20.5-51.1); MEAN CORPUSCULAR HEMOGLOBIN 31 pg (27-31); MEAN CORPUSCULAR HGB CONC 33 g/dL (33-37); MONOCYTES # (AUTO) 0.8 K/uL (0.8-1.0); MONOCYTES % (AUTO) 6.9 % (1.7-9.3); NEUTROPHILS # (AUTO) 8.8 K/uL (1.8-7.7); PLATELET COUNT (AUTO) 218 K/uL (140-450); RED CELL DISTRIBUTION WIDTH 14.5 % (11.6-13.7); WHITE BLOOD COUNT (AUTO) 11.5 K/uL (4.8-10.8)
--- NOTE | 2018-01-01 07:16 | NUR ---
ENDORSED PT TO DAY SHIFT NURSE, PT STABLE.
--- NOTE | 2018-01-01 07:17 | NUR ---
RECEIVED REPORT FROM PM NURSE AT BEDSIDE. PT LYING ON HER BED. DENIES ANY DIZZINESS AND PAIN. HAS IV ON HER LFT FA,TKO. BED AT LOWER POSITION, CALL LIGHT WITHIN PT REACH. INFORMED PT TO USE CALL LIGHT FOR ANY HELP. VERBALIZED UNDERSTANDING. NO SIGN OF DISTRESS NOTED. WILL CONTINUE TO MONITOR PT.
[2018-01-01] MEDS: ALBUTEROL SULFATE/IPRATROPIU 3 ML SOL IH SCH ×2 (07:26→13:00)
[2018-01-01 08:05] VITALS: BP 125/63
[2018-01-01 08:11] LABS: ANION GAP 9.2 (8-16); CHLORIDE 105 mmol/L (98-107); GLUCOSE 72 mg/dL (74-106); POTASSIUM 5.2 mmol/L (3.5-5.1); SODIUM SERUM 140 mmol/L (136-145); UREA NITROGEN, BLOOD 16 mg/dL (7-18)
[2018-01-01] MEDS ORDERED: APIX2.5 PO (08:55)
[2018-01-01] MEDS ORDERED: SAL1 PO (08:55)
[2018-01-01] MEDS ORDERED: METO50TE2 PO (08:55)
[2018-01-01] MEDS ORDERED: ASPI81CT95 PO (08:55)
[2018-01-01] MEDS ORDERED: CEPH250C16 PO (08:57)
[2018-01-01] MEDS ORDERED: SODIUM CHLORIDE 1 GM TAB PO SCH (09:00)
[2018-01-01] MEDS: APIXABAN 2.5 MG TAB PO SCH (09:43)
[2018-01-01] MEDS: ASPIRIN 81 MG TAB.CHEW PO SCH (09:43)
[2018-01-01] MEDS: LACTOBACILLUS RHAMNOSUS GG 1 EACH CAP PO SCH (09:44)
--- NOTE | 2018-01-01 09:45 | NUR ---
ADMINISTERED MEDS TO PT. TOLERATED WELL. PT WALKED TO BATHROOM. STATES HAD BM. HAS STEADY GAIT. NO SIGN OF DISTRESS NOTED. ALL SAFETY MEASURE IN PLACE. TOLD HER THAT SHE IS GOING TO BE DC TODAY. WILL CONFIRM WITH MD. VERBALIZED UNDERSTANDING. WILL CONTINUE TO MONITOR PT.
--- NOTE | 2018-01-01 10:21 | NUR ---
CHECKED ON PT. SITTING ON HER BED. INFORMED HER THAT SHE IS MEDICALLY CLEARED TO DC HOME. PT STATES WILL CALL SISTER , SHEILA PICK HER UP AROUND [phone]. INFORMED HER THAT WILL WORK ON HER DC PAPER. VERBALIZED UNDERSTANDING. WILL CONTINUE TO MONITOR PT,
--- NOTE | 2018-01-01 12:00 | NUR ---
CHECKED ON PT . IVPB ABX INFUSING WELL . PT EATING HER LUNCH. SISTER AWARE OF PT DC , WILL COME TO PICK HER AT 1300. WORKING ON PT DC PAPER. WILL CONTINUE TO MONITOR PT.
--- NOTE | 2018-01-01 13:42 | NUR ---
PT BEING DISCHARGED AT THI TIME NO HHN RX GIVEN
--- NOTE | 2018-01-01 13:49 | NUR ---
SPOKE WITH [facility] PHONE [facility] [phone] AND GAVE HER A VERBAL CLINICAL UPDATE. FAXED DISCHARGE SUMMARY TO [facility] [phone] PHONE RICCARDO [phone]
--- NOTE | 2018-01-01 14:00 | NUR ---
PT DC FROM HOSPITAL. SISTER AT BESIDE. PT STABLE AND HAS STEADY GAIT. PICTURE TAKEN FOR HER SKIN TEAR ON RT AND LFT UPPER EXTREMITY. DC INSTRUCTION PROVIDED TO PT, SISTER AND HER SON SUMAYA. VERBALIZED UNDERSTANDING OF DC INSTRUCTION. PT WENT HOME WITH ALL HER BELONGINGS AND IN STABLE CONDITION.
== END 2018-01-01 15:40 | disposition home or self-care (01) | DRG 177 ==
LOC: MED 15:09 → MTU 18:52
PROVIDERS: ADMIT Family Medicine; ATTEND Family Medicine
DX: J69.0 Pneumonitis due to inhalation of food and vomit (principal); G93.41 Metabolic encephalopathy; N17.0 Acute kidney failure with tubular necrosis; N39.0 Urinary tract infection, site not specified; J44.0 Chronic obstructive pulmonary disease with (acute) lower respiratory infection; J44.1 Chronic obstructive pulmonary disease with (acute) exacerbation; E05.90 Thyrotoxicosis, unspecified without thyrotoxic crisis or storm; E86.0 Dehydration; I48.91 Unspecified atrial fibrillation; I95.1 Orthostatic hypotension; H60.91 Unspecified otitis externa, right ear; E03.9 Hypothyroidism, unspecified; B96.20 Unspecified Escherichia coli [E. coli] as the cause of diseases classified elsewhere; I10 Essential (primary) hypertension; K21.9 Gastro-esophageal reflux disease without esophagitis; W18.30XA Fall on same level, unspecified, initial encounter; I45.10 Unspecified right bundle-branch block; E78.5 Hyperlipidemia, unspecified; Z87.891 Personal history of nicotine dependence; Z88.2 Allergy status to sulfonamides; Z90.49 Acquired absence of other specified parts of digestive tract; Z90.710 Acquired absence of both cervix and uterus; Y93.89 Activity, other specified; Y92.512 Supermarket, store or market as the place of occurrence of the external cause; Y99.8 Other external cause status; Z88.1 Allergy status to other antibiotic agents; Z91.040 Latex allergy status; Z88.8 Allergy status to other drugs, medicaments and biological substances; Z79.899 Other long term (current) drug therapy; Z90.89 Acquired absence of other organs; Z98.49 Cataract extraction status, unspecified eye
CPT/HCPCS: 36415; 70450; 71045; 71275; 72050; 80048; 80053; 80305; 81001; 82009; 82150; 82550; 82553; 82948; 83036; 83605; 83690; 83735; 83874; 83880; 84100; 84134; 84439; 84443; 84484; 85025; 85379; 85610; 85730; 87040; 87081; 87086; 87186; 93005; 93880; 94640; 96361; 96365; 96375; 99285; C1758; G0482; J0295; J0696; J1200; J2543; J2930; J3490; J7030; J7060; J7613; J7620; Q0092; Q9967

== ENCOUNTER 2018-08-24 10:33 | Inpatient (IN) | payer OTHER ==
[~2018-08-24] VITALS: Ht 152.4 cm; Wt 68.0 kg
[~2018-08-24 10:33] MED LIST: ALBU-118 IH; APIX2.5 PO; ASPI81CT95 PO; CEPH250C16 PO; METO50TE2 PO; OMEP20TC12 PO; SODI100076 PO; SYN.075 PO
[2018-08-24 10:42] VITALS: BP 179/79
--- NOTE | 2018-08-24 10:50 | NUR ---
Patient ambulated to bed 7 with family. RN evaluating patient at bedside.
--- NOTE | 2018-08-24 10:52 | NUR ---
C/O NAUSEA AND VOMITING X 1 WEEK ALONG WITH A SINUS INFECTION. PT WAS TREATED FOR SINUS INFECTION AND DEVELOPED THE N/V AFTER STARTING MEDICATION.
--- NOTE | 2018-08-24 10:58 | NUR ---
Dr. Forte evaluating patient at bedside.
[2018-08-24] MEDS ORDERED: NACL 0.9% 1,000 ML IV ONE (11:10)
[2018-08-24] MEDS ORDERED: PANTOPRAZOLE 40 MG INJ VIAL IVP ONE (11:10)
[2018-08-24] MEDS ORDERED: ONDANSETRON 4 MG/2 ML VIAL IVP ONE (11:10)
[2018-08-24 11:25] LABS: BASOPHILS # (AUTO) 0.1 K/uL (0.00-0.22); EOSINOPHILS # (AUTO) 0.1 K/uL (0-0.4); EOSINOPHILS % (AUTO) 0.8 % (0.0-4.0); HEMATOCRIT 44.5 % (36-48); HEMOGLOBIN 15.4 g/dL (12.0-16.0); LYMPHOCYTES # (AUTO) 1.1 K/uL (2.5-16.5); LYMPHOCYTES % (AUTO) 10.6 % (20.5-51.1); MEAN CORPUSCULAR HEMOGLOBIN 31 pg (27-31); MEAN CORPUSCULAR HGB CONC 35 g/dL (33-37); MEAN CORPUSCULAR VOLUME 89.7 fL (80-94); MONOCYTES # (AUTO) 0.8 K/uL (0.8-1.0); MONOCYTES % (AUTO) 7.5 % (1.7-9.3); NEUTROPHILS # (AUTO) 8.2 K/uL (1.8-7.7); NEUTROPHILS % (AUTO) 80.1 % (42.2-75.2); PLATELET COUNT (AUTO) 270 K/uL (140-450); RED BLOOD CELL COUNT(AUTO) 4.96 MIL/uL (4.20-5.40); RED CELL DISTRIBUTION WIDTH 13.8 % (11.6-13.7); WHITE BLOOD COUNT (AUTO) 10.2 K/uL (4.8-10.8)
[2018-08-24 11:41] LABS: ALBUMIN 3.8 g/dL (3.4-5.0); ANION GAP 10.4 (8-16); ASPARTATE AMINOTRANSFERASE 21 U/L (15-37); CARBON DIOXIDE 34.2 mmol/L (21-32); CHLORIDE 95 mmol/L (98-107); CREATININE 1.6 mg/dL (0.6-1.3); GLUCOSE 110 mg/dL (74-106); SODIUM SERUM 137 mmol/L (136-145); TOTAL BILIRUBIN 0.9 mg/dL (0.0-1.0); UREA NITROGEN, BLOOD 22 mg/dL (7-18)
[2018-08-24 13:09] LABS: POTASSIUM 2.6 mmol/L (3.5-5.1)
[2018-08-24] MEDS ORDERED: KCL 20 MEQ/WATER INJ PREMIX 100 ML IV ONE (13:15)
[2018-08-24] MEDS ORDERED: MAG SULF 2000 MG/WATER PREMIX 50 ML IV ONE (13:15)
[2018-08-24] MEDS ORDERED: ORE25 PO (14:01)
[2018-08-24] MEDS ORDERED: METO25TE2 PO (14:01)
[2018-08-24] MEDS ORDERED: ALBUTEROL SULFATE/IPRATROPIU 3 ML SOL IH PRN (14:45)
[2018-08-24] MEDS ORDERED: MORPHINE SULFATE 4 MG/ML SYR IVP PRN (14:50)
[2018-08-24] MEDS ORDERED: ONDANSETRON 4 MG/2 ML VIAL IVP PRN (14:50)
[2018-08-24] MEDS ORDERED: HYDROcodone/APAP 5/325 MG 1 TAB TAB PO PRN (14:50)
[2018-08-24 15:15] LABS: APPEARANCE,URINE CLEAR (CLEAR); BILIRUBIN,URINE NEGATIVE (NEGATIVE); BLOOD, URINE NEGATIVE (NEGATIVE); LEUKOCYTE ESTERASE ,URINE NEGATIVE (NEGATIVE); NITRITE, URINE NEGATIVE (NEGATIVE); PH,URINE 6.5 (5.0-9.0); UGLUCOSE NEGATIVE (NEGATIVE)
[2018-08-24 15:19] LABS: COLOR,URINE STRAW (YELLOW)
--- NOTE | 2018-08-24 15:20 | NUR ---
NOTIFIED MD XAVIER OF POTASSIUM 2.6 AND BP OF 170/85. RECEIVED ORDERS. WILL ADMINISTER.
[2018-08-24 15:40] VITALS: BP 170/81
--- NOTE | 2018-08-24 15:40 | NUR ---
ADMITTED PT FROM ED VIA GURNEY. PT IS AMBULATORY. PT IS AAOX4, RESPIRATIONS ARE EVEN AND UNLABORED ON 2L NC. RIGHT AC 18 G INTACT, PATENT AND INFUSING IVF. PT DENIES ANY PAIN AT THIS TIME. PLAN OF CARE WAS REVIEWED WITH PT. PT VERBALIZED UNDERSTANDING. SAFETY MEASURES IN PLACE, CALL LIGHT WITHIN REACH.
--- NOTE | 2018-08-24 15:48 | NUR ---
Patient will be admitted to care of Dr. Anne. Admited to telemetry. Will go to room 127b. Belongings list completed. Report given to MARIETTA Marley and MARIETTA Mustafa.
--- NOTE | 2018-08-24 16:00 | NUR ---
ADMINISTERED PRN HYDRALAZINE FOR BP OF 170/85. PT IS ASYMPTOMATIC. ALSO ADMINISTERED 40 MEQ POTASSIUM FOR POTASSIUM OF 2.6. WILL CONTINUE TO MONITOR.
--- NOTE | 2018-08-24 16:01 | NUR ---
2 GM MAGNESIUM BROUGHT BY ER NOT GIVEN AT THIS TIME. NO MAGNESIUM LAB VALUE. WILL CONTINUE TO MONITOR.
[2018-08-24] MEDS: NACL 0.9% 1,000 ML IV SCH (16:36)
[2018-08-24] MEDS ORDERED: POTASSIUM CHLORIDE 10 MEQ TABER PO SCH (17:35)
[2018-08-24] MEDS: hydrALAZINE 10 MG TAB PO PRN (17:55)
[2018-08-24] MEDS: ALBUTEROL SULFATE/IPRATROPIU 3 ML SOL IH SCH (18:56)
--- NOTE | 2018-08-24 19:28 | NUR ---
ENDORSED TO EXECUTIVE VICE PRESIDENT NURSE. PT IS STABLE.
--- NOTE | 2018-08-24 19:29 | NUR ---
RECEIVED REPORT FROM DAY SHIFT NURSE. AAOX4. NO C/O PAIN OR SOB. ON O2 AT 2L/MIN VIA NC. SKIN INTACT. IV TO RIGHT AC #18G, NS AT 100 ML/HR INFUSING WELL. DISCUSSED PLAN OF CARE, PT VERBALIZED UNDERSTANDING. SAFETY PRECAUTION IN PLACE. CALL LIGHT WITHIN REACH.
[2018-08-24 20:00] VITALS: BP 151/74
--- NOTE | 2018-08-24 21:10 | NUR ---
PT ASKING FOR SOMETHING TO MAKE HER SLEEP AND FOR ANXIETY. PAGED DR. UGALDE, CLIENT CARE REPRESENTATIVE FOR DR. XAVIER. AWAITING FOR CALL BACK.
--- NOTE | 2018-08-24 21:20 | NUR ---
RECEIVED A CALL FROM DR. UGALDE, ORDERED AMBIEN 5 MG PO HS PRN FOR INABILITY TO SLEEP AND XANAX 0.5 MG TAB Q8H PRN FOR ANXIETY.
[2018-08-24] MEDS ORDERED: ALPRAZolam 0.5 MG TAB PO PRN (21:25)
[2018-08-24] MEDS: METOPROLOL SUCCINATE 50 MG TABER PO SCH (22:01)
[2018-08-24] MEDS: APIXABAN 2.5 MG TAB PO SCH (22:02)
[2018-08-24] MEDS: DOXYCYCLINE 100 MG in DEXTROSE 5% 100 ML IV SCH (22:03)
[2018-08-24] MEDS: ZOLPIDEM 5 MG TAB PO PRN (22:03)
--- NOTE | 2018-08-24 22:03 | NUR ---
DUE MEDS GIVEN, PT TOLERATED WELL. AMBIEN 5 MG GIVEN FOR INABILITY TO SLEEP. PT REFUSED XANAX AT THIS TIME FOR ANXIETY. PER PT, SHE'S NOT ANXIOUS AT THIS TIME, SHE JUST WANT TO SLEEP.
--- NOTE | 2018-08-24 23:00 | NUR ---
PT REFUSED SCD'S. EXPLAINED TO PT THE RISK AND BENEFITS, PT STILL REFUSED.
[2018-08-25] VITALS (7 sets, daily range): BP systolic 128–179; BP diastolic 60–84
--- NOTE | 2018-08-25 00:15 | NUR ---
VS CHECKED, WNL. NO C/O PAIN OR SOB. IVF INFUSING WELL.
[2018-08-25] MEDS: NACL 0.9% 1,000 ML IV SCH ×2 (01:00→11:00)
[2018-08-25] MEDS: ALBUTEROL SULFATE/IPRATROPIU 3 ML SOL IH SCH ×4 (01:06→20:08)
--- NOTE | 2018-08-25 02:30 | NUR ---
PT UNABLE TO COLLECT SPUTUM. PER PT, SHE HAS NO PHLEGM.
[2018-08-25] MEDS: hydrALAZINE 10 MG TAB PO PRN (04:27)
--- NOTE | 2018-08-25 04:27 | NUR ---
PT'S BP 177/84, HR 78. PT DENIES PAIN OR SOB. HYDRALAZINE 10 MG PO GIVEN.
--- NOTE | 2018-08-25 05:00 | NUR ---
V/S CHECKED. BP 153/81, HR 75. NO C/O PAIN. NO RESP DISTRESS NOTED.
[2018-08-25] MEDS: LEVOTHYROXINE 0.075 MG TAB PO SCH (05:54)
[2018-08-25 06:13] LABS: BASOPHILS # (AUTO) 0.1 K/uL (0.00-0.22); BASOPHILS % (AUTO) 1.1 % (0.0-2.0); EOSINOPHILS # (AUTO) 0.3 K/uL (0-0.4); EOSINOPHILS % (AUTO) 3.4 % (0.0-4.0); HEMATOCRIT 35.8 % (36-48); HEMOGLOBIN 12.4 g/dL (12.0-16.0); LYMPHOCYTES # (AUTO) 1.4 K/uL (2.5-16.5); LYMPHOCYTES % (AUTO) 14.2 % (20.5-51.1); MEAN CORPUSCULAR HEMOGLOBIN 31 pg (27-31); MEAN CORPUSCULAR HGB CONC 35 g/dL (33-37); MONOCYTES # (AUTO) 0.8 K/uL (0.8-1.0); MONOCYTES % (AUTO) 8.1 % (1.7-9.3); NEUTROPHILS # (AUTO) 7.1 K/uL (1.8-7.7); NEUTROPHILS % (AUTO) 73.2 % (42.2-75.2); PLATELET COUNT (AUTO) 215 K/uL (140-450); RED BLOOD CELL COUNT(AUTO) 3.97 MIL/uL (4.20-5.40); RED CELL DISTRIBUTION WIDTH 13.6 % (11.6-13.7); WHITE BLOOD COUNT (AUTO) 9.7 K/uL (4.8-10.8)
[2018-08-25 06:36] LABS: CARBON DIOXIDE 27.3 mmol/L (21-32); CHLORIDE 106 mmol/L (98-107); CREATININE 1.3 mg/dL (0.6-1.3); GLUCOSE 91 mg/dL (74-106); POTASSIUM 3.3 mmol/L (3.5-5.1); SODIUM SERUM 142 mmol/L (136-145); UREA NITROGEN, BLOOD 15 mg/dL (7-18)
[2018-08-25 06:49] LABS: MAGNESIUM 1.9 mg/dL (1.8-2.4)
--- NOTE | 2018-08-25 07:15 | NUR ---
ENDORSED PT TO DAY SHIFT NURSE. PT IN STABLE CONDITION.
--- NOTE | 2018-08-25 07:16 | NUR ---
RECEIVED REPORT FROM NUT SHELLER MACHINE OPERATOR NURSE. PATIENT LYING DOWN IN BED COMFORTABLY. NO DISTRESS NOTED. DENIES ANY PAIN. AAOX4, CALM, COOPERATIVE, SKIN COLOR APPROPRIATE TO ETHNICITY, WARM TO TOUCH. SKIN INTACT. RESPIRATIONS EVEN, UNLABORED, ON O2 2L/MIN VIA NC. IV SITE INTACT, PATENT, AND INFUSING IVF PER MD ORDERS. REVIEWED PLAN OF CARE WITH PATIENT. PATIENT VERBALIZED UNDERSTANDING. SAFETY MEASURES IN PLACE, CALL LIGHT WITHIN REACH. WILL CONTINUE TO MONITOR.
--- NOTE | 2018-08-25 08:22 | NUR ---
PATIENT HAS BEEN SCREENED AND CATEGORIZED MODERATE NUTRITION RISK. PATIENT WILL BE SEEN WITHIN 3-5 DAYS OF ADMISSION. 08/27/18[address]
[2018-08-25] MEDS: ASPIRIN 81 MG TAB.CHEW PO SCH (08:43)
[2018-08-25] MEDS: PANTOPRAZOLE 40 MG TABEC PO SCH (08:43)
[2018-08-25] MEDS: APIXABAN 2.5 MG TAB PO SCH ×2 (08:43→20:29)
[2018-08-25] MEDS: DOXYCYCLINE 100 MG in DEXTROSE 5% 100 ML IV SCH ×2 (08:44→20:43)
[2018-08-25] MEDS: METOPROLOL SUCCINATE 50 MG TABER PO SCH ×2 (08:44→20:43)
--- NOTE | 2018-08-25 08:49 | NUR ---
PATIENT LYING DOWN IN BED WATCHING TV. NO DISTRESS NOTED. DENIES ANY PAIN. SCHEDULED MEDICATIONS DUE GIVEN. WILL CONTINUE TO MONITOR.
[2018-08-25] MEDS ORDERED: NON-FORMULARY ITEM (Aspirin 81 MG) PO SCH (09:00)
[2018-08-25] MEDS ORDERED: NON-FORMULARY ITEM (Omeprazole (Omeprazole) 20 MG) PO SCH (09:00)
--- NOTE | 2018-08-25 10:30 | NUR ---
PATIENT AMBULATED TO BATHROOM AND BACK TO BED WITH STEADY GAIT. NO DISTRESS NOTED. CONDITION UNCHANGED. WILL CONTINUE TO MONITOR.
--- NOTE | 2018-08-25 11:51 | NUR ---
PATIENT COMPLAINED OF NOSE GETTING DRY DUE TO OXYGEN VIA NC. CALLED RT TO PLACE HUMIDIFER ON OXYGEN. HUMIDIFIER PLACED AT THIS TIME. WILL CONTINUE TO MONITOR.
[2018-08-25] MEDS ORDERED: POTASSIUM CHLORIDE 10 MEQ TABER PO SCH (13:00)
[2018-08-25] MEDS ORDERED: MAGNESIUM OXIDE 400 MG TAB PO SCH (13:00)
--- NOTE | 2018-08-25 13:24 | NUR ---
PATIENT SITTING DOWN IN BED RECEIVING A BREATHING TREATMENT. SCHEDULED MEDICATIONS DUE GIVEN. WILL CONTINUE TO MONITOR.
[2018-08-25] MEDS: ACETAMINOPHEN 325 MG TAB PO PRN (16:34)
--- NOTE | 2018-08-25 16:51 | NUR ---
PATIENT LYING DOWN IN BED WATCHING TV. NO DISTRESS NOTED. COMPLAINS OF A MILD HEADACHE. TYLENOL GIVEN. OTHER SCHEDULED MEDICATIONS DUE GIVEN. WILL CONTINUE TO MONITOR.
--- NOTE | 2018-08-25 19:17 | NUR ---
GAVE REPORT TO CYCLE CONSULTANT NURSE FOR CONTINUITY OF CARE. PATIENT IN STABLE CONDITION.
--- NOTE | 2018-08-25 19:20 | NUR ---
RECEIVED BEDSIDE REPORT FROM MARIETTA SCOTT, PATIENT IN BED, NO SIGNS OF ACUTE RESPIRATORY DISTRESS. ON RA, O2SAT 91%, PATIENT REFUSED TO WEAR NC, EDUCATION PROVIDED. EXPLAINED OF NEEDED SPUTUM, PATIENT STATED SHE CANT COUGH UP ANYTHING. LUNG SOUNDS ARE CLEAR IN ALL LOBES. IV IN RIGHT AC 18G SL, DRESSING INTACT.
--- NOTE | 2018-08-25 20:08 | NUR ---
PATIENT ASKED TO HOLD OFF ON BREATHING TREATMENT STATING THAT SHE IS NOT FEELING WELL BUT DOES NOT FEEL ANY RESPIRATORY DISTRESS OR SOB. SPO2 92 ON ROOM AIR AND HEART RATE 84. ADVISED PATIENT THAT SHE CAN CALL FOR A TREATMENT IF ANYTHING CHANGES.
--- NOTE | 2018-08-25 20:29 | NUR ---
PATIENT DENIES TAKING ELIQUIS AT HOME AND REFUSED MEDICATION
[2018-08-25] MEDS: ZOLPIDEM 5 MG TAB PO PRN (20:43)
--- NOTE | 2018-08-25 23:14 | NUR ---
PATIENT SLEEPING IN BED, WILL CONTINUE TO MONITOR
[2018-08-26] VITALS: BP 156/66
[2018-08-26] MEDS: ACETAMINOPHEN 325 MG TAB PO PRN (00:18)
--- NOTE | 2018-08-26 00:27 | NUR ---
PATIENT C/O LINDSEY GAVE TYLENOL FOR MILD PAIN
[2018-08-26] MEDS: ALBUTEROL SULFATE/IPRATROPIU 3 ML SOL IH SCH ×3 (01:17→13:40)
--- NOTE | 2018-08-26 02:00 | NUR ---
SLEEPING NO S/S OF PAIN OR DISTRESS
[2018-08-26 03:58] VITALS: BP 148/70
--- NOTE | 2018-08-26 04:05 | NUR ---
EXPLAINED NEED FOR O2SAT PATIENT CONTINUES TO REFUSE. PATIENT O2SAT 89-92% ON RA. EDUCATION PROVIDED.
[2018-08-26] MEDS: LEVOTHYROXINE 0.075 MG TAB PO SCH (05:31)
--- NOTE | 2018-08-26 06:00 | NUR ---
DUE MEDICATIONS GIVEN
[2018-08-26 06:51] LABS: BASOPHILS # (AUTO) 0.1 K/uL (0.00-0.22); BASOPHILS % (AUTO) 1.1 % (0.0-2.0); EOSINOPHILS # (AUTO) 0.5 K/uL (0-0.4); EOSINOPHILS % (AUTO) 5.6 % (0.0-4.0); HEMATOCRIT 39.2 % (36-48); HEMOGLOBIN 13.2 g/dL (12.0-16.0); LYMPHOCYTES # (AUTO) 1.4 K/uL (2.5-16.5); LYMPHOCYTES % (AUTO) 14.9 % (20.5-51.1); MEAN CORPUSCULAR HEMOGLOBIN 31 pg (27-31); MEAN CORPUSCULAR HGB CONC 34 g/dL (33-37); MEAN CORPUSCULAR VOLUME 92.3 fL (80-94); MONOCYTES # (AUTO) 0.6 K/uL (0.8-1.0); NEUTROPHILS # (AUTO) 6.9 K/uL (1.8-7.7); NEUTROPHILS % (AUTO) 72.4 % (42.2-75.2); PLATELET COUNT (AUTO) 241 K/uL (140-450); RED BLOOD CELL COUNT(AUTO) 4.25 MIL/uL (4.20-5.40); RED CELL DISTRIBUTION WIDTH 14.3 % (11.6-13.7); WHITE BLOOD COUNT (AUTO) 9.6 K/uL (4.8-10.8)
--- NOTE | 2018-08-26 07:15 | NUR ---
RECEIVED PT REPORT FROM TAKE OFF MAN NURSE AT BEDSIDE. PT IS ASLEEP AT THIS TIME, NO S/S OF ANY ACUTE DISTRESS OR SOB NOTED. PT IS ON ROOM AIR RIGHT NOW. SKIN IS INTACT. IV IS ON THE R AC, 18 G, SALINE LOCKED. PT IS INDEPENDENT AND AMBULATORY, NOT A FALL RISK. CALL LIGHT IS WITHIN REACH, WILL CONTINUE TO MONITOR.
--- NOTE | 2018-08-26 07:21 | NUR ---
ENDORSED PATIENT TO DAY SHIFT NURSE, PATIENT STABLE.
[2018-08-26 07:24] LABS: ANION GAP 13.9 (8-16); CARBON DIOXIDE 26.5 mmol/L (21-32); CHLORIDE 106 mmol/L (98-107); CREATININE 1.3 mg/dL (0.6-1.3); GLUCOSE 100 mg/dL (74-106); POTASSIUM 3.4 mmol/L (3.5-5.1); SODIUM SERUM 143 mmol/L (136-145); UREA NITROGEN, BLOOD 17 mg/dL (7-18)
--- NOTE | 2018-08-26 07:45 | NUR ---
AWAKE AND ALERT VERBALLY RESPONSIVE NO INDICATION FOR PULMONARY DISTRESS NOTED PATIENT WITH BREAKFAST TRAY BASTING CLEANER TO ATTEMPT [facility] THERAPY AND RESPURATORY DRUG AT A LATER TIME
[2018-08-26 08:00] VITALS: BP 153/81
--- NOTE | 2018-08-26 08:12 | NUR ---
PT'S O2 SAT IS 91% ON ROOM AIR, HOWEVER, SHE IS DECLINES TO WEAR O2 NASAL CANULA, STATING THAT IT DRIES OUT HER SINUSES. SHE DENIES ANY SOB, AND IS ASYMPTOMATIC. WILL CONTINUE TO MONITOR.
[2018-08-26] MEDS: ASPIRIN 81 MG TAB.CHEW PO SCH (08:33)
[2018-08-26] MEDS: METOPROLOL SUCCINATE 50 MG TABER PO SCH (08:34)
[2018-08-26] MEDS: PANTOPRAZOLE 40 MG TABEC PO SCH (08:34)
[2018-08-26] MEDS: DOXYCYCLINE 100 MG in DEXTROSE 5% 100 ML IV SCH (08:35)
[2018-08-26] MEDS: APIXABAN 2.5 MG TAB PO SCH (08:39)
--- NOTE | 2018-08-26 08:40 | NUR ---
TOLERATED INCENTIVE SPIROMETRY THERAPY WELL WITHOUT INCIDENT ENCOURAGED PATIENT WITH ACKNOWLEDGEMENT TO USE INCENTIVE SPIROMETRY EVERY 1-2 HOURS WHILE AWAKE
--- NOTE | 2018-08-26 08:55 | NUR ---
SCHEDULED AM MEDS ADMINISTERED. PT TOLERATED WELL.
[2018-08-26] MEDS ORDERED: POTASSIUM CHLORIDE 10 MEQ TABER PO SCH (09:30)
[2018-08-26 09:40] LABS: MAGNESIUM 2.2 mg/dL (1.8-2.4); PHOSPHORUS 2.8 mg/dL (2.5-4.9)
[2018-08-26 12:00] VITALS: BP 171/86
[2018-08-26] MEDS ORDERED: PANT40EC28 PO (12:34)
[2018-08-26] MEDS ORDERED: PRED20TA5 PO (12:34)
[2018-08-26] MEDS ORDERED: ALBU0.0912 IH (12:36)
[2018-08-26] MEDS ORDERED: DOXY100C9 PO (12:36)
[2018-08-26] MEDS ORDERED: CEFD300C3 PO (12:36)
[2018-08-26] MEDS ORDERED: PRON INH (12:36)
--- NOTE | 2018-08-26 12:45 | NUR ---
PT SEEN BY DR XAVIER
[2018-08-26] MEDS ORDERED: predniSONE 20 MG TAB PO SCH (12:48)
--- NOTE | 2018-08-26 13:44 | NUR ---
MARTA FROM [facility] CALLED [phone], FAX [phone] FOR CLINICAL REVIEWS. CALLED CRISTINA AND NOTIFIED HER TO FAX CLINICAL REVIEWS TO [facility], VERBALIZED UNDERSTANDING.
--- NOTE | 2018-08-26 13:50 | NUR ---
PT IS GETTING A BREATHING TX AT THIS TIME
--- NOTE | 2018-08-26 15:05 | NUR ---
CALLED MARTA FROM [facility] [phone] AND FAX ORDER FOR NEBULIZER AT [phone]. MARTA SAID TO FAX ORDER TO [facility] [phone] AND HE WILL CALL THE AUTHORIZATION. CALLED [facility] SPOKE TO [facility] [phone] AND AWARE OF NEW ORDER.
[2018-08-26 16:00] VITALS: BP 169/67
--- NOTE | 2018-08-26 16:24 | NUR ---
CALLED [facility] SPOKE TO SHAWN [phone], PER SHAWN, NEBULIZER WILL BE DELIVERED AT HOME. MARIETTA NAVARRO MADE AWARE AND WILL INFORM PATIENT.
--- NOTE | 2018-08-26 17:15 | NUR ---
PT HAS DC'D. PT WAS GIVEN DC INSTRUCTIONS AND PRESCRIPTIONS. PT VERBALIZED UNDERSTANDING OF DC TEACHING. IV SITE AND WRIST BANDS WERE REMOVED. PT LEFT WITH ALL HER BELONGINGS IN STABLE CONDITION ACCOMPANIED BY HER SISTER.
[2018-08-27] MEDS ORDERED: predniSONE 20 MG TAB PO SCH (09:00)
--- NOTE | 2018-08-31 09:45 | NUR ---
Call place to ronak leave message to voicemail regarding follow up of blood culture, made aware result is normal.
== END 2018-08-26 17:15 | disposition home or self-care (01) | DRG 682 ==
LOC: MED 10:33 → MMU 14:49 → MTU 20:51
PROVIDERS: ADMIT Internal Medicine Pulmonary Disease; ATTEND Internal Medicine Pulmonary Disease
DX: N17.0 Acute kidney failure with tubular necrosis (principal); J96.01 Acute respiratory failure with hypoxia; J98.11 Atelectasis; J20.9 Acute bronchitis, unspecified; E03.9 Hypothyroidism, unspecified; E86.9 Volume depletion, unspecified; I10 Essential (primary) hypertension; E87.6 Hypokalemia; K29.70 Gastritis, unspecified, without bleeding; Z87.891 Personal history of nicotine dependence; Z90.711 Acquired absence of uterus with remaining cervical stump; Z88.2 Allergy status to sulfonamides; Z88.8 Allergy status to other drugs, medicaments and biological substances; Z88.1 Allergy status to other antibiotic agents; Z91.040 Latex allergy status; Z98.49 Cataract extraction status, unspecified eye
CPT/HCPCS: 36415; 36600; 71045; 80048; 80053; 81003; 82803; 82948; 83690; 83735; 83880; 84100; 84484; 85025; 86635; 87040; 87081; 93005; 94640; 96361; 96365; 96366; 96375; 99285; C9113; J0696; J2405; J3475; J3480; J3490; J7030; J7060; J7512; J7620

== ENCOUNTER 2018-09-17 09:26 | Emergency (ER) | payer OTHER ==
[~2018-09-17] VITALS: Ht 162.6 cm; Wt 63.5 kg
[~2018-09-17 09:26] MED LIST changes: +ALBU0.0912 IH; +CEFD300C3 PO; -CEPH250C16 PO; +DOXY100C9 PO; +METO25TE2 PO; -METO50TE2 PO; -OMEP20TC12 PO; +PANT40EC28 PO; +PRED20TA5 PO; +PRON INH; -SODI100076 PO
[2018-09-17 09:38] VITALS: BP 177/89
[2018-09-17] MEDS ORDERED: ACETAMINOPHEN EXTRA STRENGTH 500 MG TAB PO ONE (10:15)
[2018-09-17] MEDS ORDERED: PHENYLEPHRINE 0.5% 15 ML BTL NS ONE (10:15)
--- NOTE | 2018-09-17 11:23 | NUR ---
Lisbeth barron in [facility] - 09/17/18 at 1125 by [facility] PT TAKEN TO BED 12.
--- NOTE | 2018-09-17 11:28 | NUR ---
C/O CONGESTION X 3 WKS. PT WAS ADMITTED AT [facility] ON 08/24/18 WITH DX.BRONCHITIS, SINUS INFECTION. PT STATED STILL HAVE CONGESTION. HX.HTN, HYPOTHYROIDISM.
--- NOTE | 2018-09-17 11:54 | NUR ---
X RAY AT BEDSIDE
[2018-09-17 12:20] VITALS: BP 168/72
--- NOTE | 2018-09-17 12:21 | NUR ---
Patient discharged with v/s stable. Written and verbal after care instructions given and explained. Patient alert, oriented and verbalized understanding of instructions. Ambulatory with steady gait. All questions addressed prior to discharge. ID band removed. Patient advised to follow up with PMD. Rx of Prednisone and Tylenol given. Patient educated on indication of medication including possible reaction and side effects. Opportunity to ask questions provided and answered.
== END 2018-09-17 12:21 | disposition home or self-care (01) ==
LOC: MED 09:26
DX: S46.911A Strain of unspecified muscle, fascia and tendon at shoulder and upper arm level, right arm, initial encounter (principal); R51 Headache; R07.89 Other chest pain; I10 Essential (primary) hypertension; E07.9 Disorder of thyroid, unspecified; Z85.22 Personal history of malignant neoplasm of nasal cavities, middle ear, and accessory sinuses; Z79.82 Long term (current) use of aspirin; Z79.2 Long term (current) use of antibiotics; Z79.01 Long term (current) use of anticoagulants; Z79.899 Other long term (current) drug therapy; Z88.2 Allergy status to sulfonamides; Z91.040 Latex allergy status; Z88.1 Allergy status to other antibiotic agents; Z88.8 Allergy status to other drugs, medicaments and biological substances; X58.XXXA Exposure to other specified factors, initial encounter; Y93.89 Activity, other specified; Y92.89 Other specified places as the place of occurrence of the external cause; Y99.8 Other external cause status
CPT/HCPCS: 70450; 73060; 99284; Q0092

== ENCOUNTER 2018-09-22 12:55 | Inpatient (IN) | payer OTHER ==
[~2018-09-22] VITALS: Ht 152.4 cm; Wt 61.2 kg
[2018-09-22 13:04] VITALS: BP 131/79
--- NOTE | 2018-09-22 13:20 | NUR ---
W/C ASSISTANCE TO BED 3
--- NOTE | 2018-09-22 13:26 | NUR ---
PT BIB FRIEND C/O COUGH, DIZZINESS X 3 DAYS. PT DENIES PAIN OR VISUAL DISTURBANCES. AAOX4, PERRLA, COOPERATIVE, HAND PARACHUTE CROWN SEWER EQUAL/STRONG, MEMORY INTACT. PT STATES THAT SHE FEELS WEEK AND AND THAT SHE MIGHT FALL DOWN IF SHE WALKS. VSJennifer. TRISTEN CANO TO SEE PT. MED HX:NOSE CANCER,HTN, THYROID DISEASE, CHOLECYSTECTOMY, HYSTERECTOMY, HERNIA, CATARECT SURGERY Addendum: 09/22/18 at 1338 by DEREK pt has abrasion on LT arm, pt states she does not know how it happened, but reports that it is sore.
--- NOTE | 2018-09-22 14:35 | NUR ---
ER AT BEDSIDE
[2018-09-22] MEDS ORDERED: NACL 0.9% 1,000 ML IV ONE (14:45)
[2018-09-22 15:23] LABS: BASOPHILS # (AUTO) 0.1 K/uL (0.00-0.22); BASOPHILS % (AUTO) 0.4 % (0.0-2.0); EOSINOPHILS % (AUTO) 0.3 % (0.0-4.0); HEMATOCRIT 41.7 % (36-48); HEMOGLOBIN 14.7 g/dL (12.0-16.0); LYMPHOCYTES # (AUTO) 0.7 K/uL (2.5-16.5); LYMPHOCYTES % (AUTO) 5.2 % (20.5-51.1); MEAN CORPUSCULAR HEMOGLOBIN 31 pg (27-31); MEAN CORPUSCULAR HGB CONC 35 g/dL (33-37); MEAN CORPUSCULAR VOLUME 87.8 fL (80-94); MONOCYTES # (AUTO) 1.2 K/uL (0.8-1.0); MONOCYTES % (AUTO) 8.3 % (1.7-9.3); NEUTROPHILS # (AUTO) 12.1 K/uL (1.8-7.7); NEUTROPHILS % (AUTO) 85.8 % (42.2-75.2); PLATELET COUNT (AUTO) 258 K/uL (140-450); RED BLOOD CELL COUNT(AUTO) 4.75 MIL/uL (4.20-5.40); RED CELL DISTRIBUTION WIDTH 14.5 % (11.6-13.7); WHITE BLOOD COUNT (AUTO) 14.1 K/uL (4.8-10.8)
--- NOTE | 2018-09-22 15:36 | NUR ---
PT HYPERTENSIVE AT 194/81, PT DENIES CP, SOB, NAUSEA, HEADACHE, OR VISUAL DISTURBANCES. PT REPORTS FEELING DIZZY. ER MD NOTIFIED.
[2018-09-22] MEDS ORDERED: METOPROLOL 25 MG TAB PO ONE (15:40)
[2018-09-22 15:41] LABS: ALBUMIN 3.2 g/dL (3.4-5.0); ANION GAP 9.7 (8-16); ASPARTATE AMINOTRANSFERASE 30 U/L (15-37); CARBON DIOXIDE 36.5 mmol/L (21-32); CHLORIDE 84 mmol/L (98-107); CREATININE 1.4 mg/dL (0.6-1.3); GLUCOSE 105 mg/dL (74-106); SODIUM SERUM 128 mmol/L (136-145); UREA NITROGEN, BLOOD 17 mg/dL (7-18)
[2018-09-22 15:54] LABS: BILIRUBIN,URINE NEGATIVE (NEGATIVE); BLOOD, URINE 1+ (NEGATIVE); COLOR,URINE YELLOW (YELLOW); LEUKOCYTE ESTERASE ,URINE 1+ (NEGATIVE); NITRITE, URINE POSITIVE (NEGATIVE); PH,URINE 6.5 (5.0-9.0); POTASSIUM 2.2 mmol/L (3.5-5.1); UGLUCOSE NEGATIVE (NEGATIVE)
[2018-09-22 15:55] LABS: APPEARANCE,URINE SLIGHTLY CLOUDY (CLEAR)
[2018-09-22 16:00] LABS: TOTAL BILIRUBIN 2.3 mg/dL (0.0-1.0)
[2018-09-22 16:06] LABS: WBC,URINE 16-25 (MOD) /HPF (0-5)
[2018-09-22] MEDS ORDERED: MAG SULF 2000 MG/WATER PREMIX 50 ML IV ONE (16:15)
[2018-09-22] MEDS ORDERED: KCL 20 MEQ/WATER INJ PREMIX 100 ML IV ONE (16:15)
[2018-09-22] MEDS ORDERED: POTASSIUM CHLORIDE 10 MEQ TABER PO ONE (16:15)
[2018-09-22] MEDS ORDERED: ORE25 PO (16:43)
[2018-09-22] MEDS ORDERED: OMEP20TC12 PO (16:43)
[2018-09-22] MEDS ORDERED: AMLO5TAB PO (16:43)
[2018-09-22] MEDS ORDERED: cefTRIAXone 1,000 MG VIAL ONE (16:57)
[2018-09-22] MEDS: NACL 0.9% 1,000 ML IV SCH ×2 (17:05→20:49)
[2018-09-22] MEDS ORDERED: MAG SULF 2000 MG/WATER PREMIX 50 ML IV PRN (17:10)
[2018-09-22] MEDS ORDERED: IPRATROPIUM 0.02% 0.5 MG/2.5 ML NEBU INH PRN (17:10)
[2018-09-22] MEDS ORDERED: ACETAMINOPHEN 325 MG TAB PO PRN (17:10)
[2018-09-22] MEDS ORDERED: POTASSIUM CHLORIDE 10 MEQ TABER PO PRN (17:10)
[2018-09-22] MEDS ORDERED: guaiFENesin DM 200/20 MG-10 ML 10 ML UDC PO PRN (17:10)
[2018-09-22] MEDS ORDERED: ACETAMINOPHEN 650 MG SUPP RC PRN (17:10)
[2018-09-22] MEDS ORDERED: BISACODYL 10 MG SUPP RC PRN (17:10)
[2018-09-22] MEDS ORDERED: ALBUTEROL 0.083% 2.5 MG/3 ML NEBU INH PRN (17:10)
[2018-09-22] MEDS ORDERED: MORPHINE SULFATE 2 MG/ML SYR IVP PRN (17:10)
[2018-09-22] MEDS ORDERED: HYDROcodone/APAP 5/325 MG 1 TAB TAB PO PRN ×2 (17:10)
[2018-09-22] MEDS ORDERED: LORazepam 2 MG/ML VIAL IVP PRN (17:10)
[2018-09-22] MEDS ORDERED: ONDANSETRON 4 MG/2 ML VIAL IVP PRN (17:10)
[2018-09-22] MEDS ORDERED: cloNIDine 0.1 MG TAB PO PRN (17:10)
[2018-09-22] MEDS ORDERED: ALUMINUM HYD/MAG/SIMETHICONE 30 ML UDC PO PRN (17:10)
[2018-09-22] MEDS ORDERED: MAGNESIUM OXIDE 400 MG TAB PO PRN (17:10)
[2018-09-22] MEDS ORDERED: ZOLPIDEM 5 MG TAB PO PRN (17:10)
[2018-09-22] MEDS ORDERED: SODIUM PHOSPHATE 118 ML ENEM RC PRN (17:10)
[2018-09-22] MEDS ORDERED: POTASSIUM CHLORIDE 40 MEQ, LIDOCAINE 1% 25 MG in NACL 0.9% 250 ML IV PRN (17:10)
[2018-09-22] MEDS ORDERED: DOCUSATE SODIUM 250 MG GELCAP PO PRN (17:10)
[2018-09-22] MEDS ORDERED: NACL 0.9% 500 ML IV SCH (17:25)
--- NOTE | 2018-09-22 17:30 | NUR ---
PT COMPLAINING OF BURING IN ARM AFTER STARTING POTASSIUM, SLOWED POTASSIUM DOWN TO 30ML/HR, STILL COMPLAINING OF BURNING, NOTIFIED MD ER, STATED HE WOULD ADD MAINTENANCE FLUID AT 50ML/HR TO RUN WITH POTASSIUM.
--- NOTE | 2018-09-22 17:44 | NUR ---
Patient will be admitted to care of . Admited to TELE VIA GURNEY W/ VSS. Will go to room 122A. Belongings list completed. Report to DOMINIQUE MCMANUS.
--- NOTE | 2018-09-22 17:49 | NUR ---
RECEIVED REPORT FROM EMERGENCY ROOM NURSE FOR CONTINUITY OF CARE. PT IN STABLE CONDITION. IV INTACT AND PATENT. RESPIRATIONS EVEN AND UNLABORED. SAFETY MEASURES IN PLACE. CALL LIGHT AT BEDSIDE. BED IN LOW POSITION. BED ALARM ON. WILL CONTINUE TO MONITOR.
--- NOTE | 2018-09-22 18:10 | NUR ---
RETRIEVED MEAL FOR PER PT REQUEST FROM [facility].
[2018-09-22] MEDS ORDERED: POTASSIUM CHLORIDE 20% 40 MEQ/15 ML UDC PO SCH (19:00)
--- NOTE | 2018-09-22 19:25 | NUR ---
GAVE REPORT TO PEER EDUCATOR NURSE FOR CONTINUITY OF CARE. PT IN STABLE CONDITION.
--- NOTE | 2018-09-22 19:26 | NUR ---
REPORT RECEIVED FROM AM NURSE AT BEDSIDE. PT IN STABLE CONDITION. AAOX4. INTRODUCED SELF TO PT. BOARD UPDATED. NO COMPLAINTS OF PAIN. NO SOB . AFEBRILE. IV SITE R AC 20G RUNNING NS@75ML/HR AND L WRIST 22G SL BOTH PATENT AND INTACT. SKIN WARM, DRY, AND INTACT WITH NO OPEN WOUNDS. PT IS AMBULATORY. MRSA RECEIVED AND SENT TO LAB. BED LOCKED IN LOW POSITION. CALL CRAWFORD WITHIN REACH. SAFETY PRECAUTION IN PLACE. ALL NEEDS MET AT THIS TIME.
[2018-09-22] MEDS: METOPROLOL 25 MG TAB PO SCH (20:49)
--- NOTE | 2018-09-22 20:49 | NUR ---
LOPRESSOR AND POTASSIUM GIVEN PO. PT TOLERATED WELL.
[2018-09-22] MEDS: diphenhydrAMINE 50 MG/ML VIAL IVP PRN (21:29)
--- NOTE | 2018-09-22 21:29 | NUR ---
PT HAS COMPLAINTS OF WRIST PAIN AND SWELLING POSSIBLY DUE TO ALLERGIC REACTION OF LATEX. BENADRYL GIVEN IVP. WILL MONITOR SITE OF SWELLING AND REASSESS.
--- NOTE | 2018-09-22 22:30 | NUR ---
SWELLING AND PAIN HAS DECREASED IN THE WRIST. PT STATES THAT THE BENADRYL HELPED A LOT. STILL UNKNOWN WHAT WAS THE CAUSE OF THE SWELLING. IV SITE D/C L WRIST 22G TO PREVENT SWELLING OF HAPPENING AGAIN. CANNULA INTACT.
[2018-09-23] VITALS: BP 135/62
--- NOTE | 2018-09-23 00:35 | NUR ---
PT SLEEPING COMFORTABLY IN BED. NO S/S OF DISTRESS NOTED. WILL CONTINUE TO MONITOR.
--- NOTE | 2018-09-23 02:30 | NUR ---
PT AWAKE AND WENT TO THE RESTROOM. PT ALSO REQUESTED FOR SOME APPLESAUCE. THE SWELLING AND PAIN ON THE WRIST HAS COMPLETELY SUBSIDED. NO S/S OF DISTRESS NOTED. WILL CONTINUE TO MONITOR.
[2018-09-23 04:00] VITALS: BP 133/67
--- NOTE | 2018-09-23 04:10 | NUR ---
PT VS STABLE. PT WAS SLEEPING BUT AROUSABLE FOR VS. NO S/S OF DISTRESS NOTED. WILL CONTINUE TO MONITOR.
[2018-09-23] MEDS: LEVOTHYROXINE 0.075 MG TAB PO SCH (05:37)
--- NOTE | 2018-09-23 05:37 | NUR ---
SYNTHROID GIVEN PO. PT TOLERATED WELL.
[2018-09-23 07:19] LABS: BASOPHILS # (AUTO) 0.1 K/uL (0.00-0.22); BASOPHILS % (AUTO) 0.7 % (0.0-2.0); CHLORIDE 96 mmol/L (98-107); EOSINOPHILS # (AUTO) 0.2 K/uL (0-0.4); EOSINOPHILS % (AUTO) 2.4 % (0.0-4.0); HEMATOCRIT 35.1 % (36-48); HEMOGLOBIN 12.4 g/dL (12.0-16.0); LYMPHOCYTES # (AUTO) 1.1 K/uL (2.5-16.5); LYMPHOCYTES % (AUTO) 11.2 % (20.5-51.1); MEAN CORPUSCULAR HEMOGLOBIN 31 pg (27-31); MEAN CORPUSCULAR HGB CONC 35 g/dL (33-37); MEAN CORPUSCULAR VOLUME 88.6 fL (80-94); MONOCYTES % (AUTO) 9.5 % (1.7-9.3); NEUTROPHILS # (AUTO) 7.6 K/uL (1.8-7.7); NEUTROPHILS % (AUTO) 76.2 % (42.2-75.2); PLATELET COUNT (AUTO) 254 K/uL (140-450); POTASSIUM 2.8 mmol/L (3.5-5.1); RED BLOOD CELL COUNT(AUTO) 3.96 MIL/uL (4.20-5.40); RED CELL DISTRIBUTION WIDTH 14.8 % (11.6-13.7); SODIUM SERUM 133 mmol/L (136-145)
--- NOTE | 2018-09-23 07:19 | NUR ---
CRITICAL VALUE CALLED IN BY LAB. POTASSIUM 2.8. WILL NOTIFY
[2018-09-23 07:20] LABS: ANION GAP 7.1 (8-16); CARBON DIOXIDE 32.7 mmol/L (21-32); GLUCOSE 94 mg/dL (74-106)
[2018-09-23 07:22] LABS: CREATININE 1.2 mg/dL (0.6-1.3); UREA NITROGEN, BLOOD 13 mg/dL (7-18)
--- NOTE | 2018-09-23 07:24 | NUR ---
REPORT GIVEN TO AM NURSE AT BEDSIDE. PT IN STABLE CONDITION.
--- NOTE | 2018-09-23 07:25 | NUR ---
RETURNED CALL BY CORTEZ CANO. NOTIFIED HIM OF POTASSIUM OF 2.8. ORDERED KRIDER 20MEQ IV ONCE. KDUR 40MEQ PO Q4H 2 TIMES. TORB.
--- NOTE | 2018-09-23 07:30 | NUR ---
RECEIVED PT FROM RN MILITARY NURSE, PT IS AWAKE AND LYING ON THE BED WITH SIDE RAILS UP AND CALL LIGHT WITHIN REACH, SAFETY PRECAUTION ENFORCED, BED ALARM ACTIVATED, PT HAS AN IV LINE ON THE RT AC G.20 WITH NS AT 75ML/HR INFUSING, INTACT, PT DENIES PAIN AND NO SIGN OF DISTRESS NOTED. WILL CONTINUE TO MONITOR PT.
[2018-09-23 08:00] VITALS: BP 169/71
[2018-09-23] MEDS ORDERED: KCL 20 MEQ/WATER INJ PREMIX 100 ML IV SCH (08:00)
[2018-09-23] MEDS: ASPIRIN 81 MG TAB.CHEW PO SCH (08:24)
[2018-09-23] MEDS: METOPROLOL 25 MG TAB PO SCH ×2 (08:26→20:11)
[2018-09-23] MEDS: amLODIPine 5 MG TAB PO SCH (08:26)
[2018-09-23] MEDS: POTASSIUM CHLORIDE 10 MEQ TABER PO SCH ×2 (08:27→11:41)
[2018-09-23] MEDS: AZITHROMYCIN 500 MG in DEXTROSE 5% 250 ML IV SCH (08:34)
--- NOTE | 2018-09-23 08:35 | NUR ---
PT IS AWAKE ANE EATING HER BREAKFAST, ORAL MEDICATIONS WERE GIVEN, PARAMETERS CHECKED AND IS STABLE, PT TOLERATED IT AND WILL MONITOR PT.
--- NOTE | 2018-09-23 08:47 | NUR ---
PATIENT HAS BEEN SCREENED AND CATEGORIZED HIGH NUTRITION RISK. PATIENT WILL BE SEEN WITHIN 1-2 DAYS OF ADMISSION. 09/23/18-09/24/[address]
[2018-09-23] MEDS ORDERED: NON-FORMULARY ITEM (Aspirin 81 MG) PO SCH (09:00)
--- NOTE | 2018-09-23 11:05 | NUR ---
POTASSIUM RIDER WAS STARTED TO PT NOW.
--- NOTE | 2018-09-23 11:42 | NUR ---
K-DUR 40 MEQ WAS GIVEN TO PT NOW
[2018-09-23 12:00] VITALS: BP 139/64
--- NOTE | 2018-09-23 12:30 | NUR ---
PT IS SEATED ON THE BED, EATING HER LUNCH, VITAL SIGNS CHECKED AND IS WITHIN NORMAL LIMIT. PT DENIES PAIN. WILL MONITOR PT.
--- NOTE | 2018-09-23 14:09 | NUR ---
P.T. NOTES P.T. ELIJAH COMPLETED; NURSING TO AMBU AD NELLI; O2 SAT ROOM AIR=94% Addendum: 09/23/18 at 1409 by Edith Traylor PT Amended: Links added.
[2018-09-23 16:00] VITALS: BP 138/72
--- NOTE | 2018-09-23 16:15 | NUR ---
PT IS AWAKE AND LYING ON THE BED, VITAL SIGN STAKEN AND IS WITHIN NORMAL LIMIT. NO SIGN OF DISTRESS NOTED AND WILL MONITOR PT.
--- NOTE | 2018-09-23 18:02 | NUR ---
PT WAS GIVEN ROCEPHIN IVPB, WILL MONITOR PT.
--- NOTE | 2018-09-23 19:10 | NUR ---
ENDORSED PT TO FIRMWARE TEST ENGINEER NURSE FOR CONTINUITY OF CARE. PT IS AWAKE AND LYING ON THE BED, STABLE AT THIS TIME.
--- NOTE | 2018-09-23 19:11 | NUR ---
REPORT RECEIVED FROM AM NURSE AT BEDSIDE. PT IN STABLE CONDITION. AAOX4. INTRODUCED SELF TO PT. BOARD UPDATED. NO COMPLAINTS OF PAIN. NO SOB. AFEBRILE. IV SITE R AC 20G RUNNING NS@75ML/HR PATENT AND INTACT. SKIN WARM, DRY, AND INTACT WITH NO OPEN WOUNDS. PT IS AMBULATORY. BED LOCKED IN LOW POSITION. CALL CRAWFORD WITHIN REACH. SAFETY PRECAUTION IN PLACE. ALL NEEDS MET AT THIS TIME.
[2018-09-23] MEDS: NACL 0.9% 1,000 ML IV SCH (19:45)
[2018-09-23 20:00] VITALS: BP 132/65
--- NOTE | 2018-09-23 20:11 | NUR ---
METOPROLOL GIVEN PO. PT TOLERATED WELL.
--- NOTE | 2018-09-23 20:45 | NUR ---
RECEIVED PATIENT ON ROOM AIR, PULSE OX 94%. BREATH SOUNDS CLEAR. PATIENT DENIES SOB. PRN BREATHING TREATMENT NOT INDICATED AT THIS TIME. NO RESPIRATORY DISTRESS NOTED. WILL CONTINUE TO MONITOR.
--- NOTE | 2018-09-23 22:10 | NUR ---
PT LAYING IN BED WATCHING TV. NO S/S OF DISTRESS NOTED. CALL CRAWFORD WITHIN REACH. BED IN LOW POSITION. WILL CONTINUE TO MONITOR.
[2018-09-24] VITALS: BP 124/74
--- NOTE | 2018-09-24 00:10 | NUR ---
PT SLEEPING COMFORTABLY IN BED. NO S/S OF DISTRESS NOTED. VS STABLE. NO COMPLAINTS OF PAIN. NO SOB. AFEBRILE. WILL CONTINUE TO MONITOR.
--- NOTE | 2018-09-24 01:50 | NUR ---
PT TRYING TO SLEEP LAYING IN BED LEFT LATERAL. NO S/S OF DISTRESS NOTED. WILL CONTINUE TO MONITOR.
[2018-09-24] MEDS: diphenhydrAMINE 50 MG/ML VIAL IVP PRN (02:04)
--- NOTE | 2018-09-24 02:04 | NUR ---
BENADRYL GIVEN IVP. PT TOLERATED WELL.
[2018-09-24 04:00] VITALS: BP 127/69
--- NOTE | 2018-09-24 04:25 | NUR ---
PT UNABLE TO SLEEP. PT SEEMS AGITATED AND D/C TELE BOX. WILL PUT PT BACK ON TELE.
--- NOTE | 2018-09-24 04:45 | NUR ---
MOVED PATIENT FROM 122B TO 124B.
[2018-09-24] MEDS: LEVOTHYROXINE 0.075 MG TAB PO SCH (05:44)
--- NOTE | 2018-09-24 05:44 | NUR ---
SYNTHROID GIVEN PO. PT TOLERATED WELL.
[2018-09-24 06:22] LABS: ANION GAP 11.9 (8-16); CARBON DIOXIDE 25.4 mmol/L (21-32); CHLORIDE 103 mmol/L (98-107); CREATININE 1.1 mg/dL (0.6-1.3); GLUCOSE 80 mg/dL (74-106); POTASSIUM 3.3 mmol/L (3.5-5.1); SODIUM SERUM 137 mmol/L (136-145); UREA NITROGEN, BLOOD 10 mg/dL (7-18)
--- NOTE | 2018-09-24 07:15 | NUR ---
REPORT GIVEN TO AM NURSE AT BEDSIDE. PT IN STABLE CONDITION.
--- NOTE | 2018-09-24 07:20 | NUR ---
RECEIVED PT FROM CHIEF OF PEDIATRIC UROLOGY NURSE, PT IS AWAKE AND SEATED ON THE BED WITH AN IV LINE ON THER LEFT FA G.24, INTACT WITH NS INFUSING AT A RATE OF 75ML/HR, SIDE RAILS ARE UP AND CALL LIGHT WITHIN REACH, PT DENIES PAIN AND NO SOB NOTED. WILL MONITOR PT.
--- NOTE | 2018-09-24 07:45 | NUR ---
PT IS AWAKE AND VITAL TAKEN, BP IS 149/71, PULSE IS 70, O2 SATURATION IS 97%, TEMPERATURE IS 98.1 AND RESPIRATION IS 16/MIN ON ROOM AIR, NO SIGN OF DISTRESS NOTED AND DENIES PAIN. WILL MONITOR PT.
[2018-09-24 08:00] VITALS: BP 149/71
[2018-09-24] MEDS ORDERED: CEPH250C16 PO (08:16)
[2018-09-24] MEDS: NACL 0.9% 1,000 ML IV SCH (09:05)
[2018-09-24] MEDS: METOPROLOL 25 MG TAB PO SCH (10:08)
[2018-09-24] MEDS: AZITHROMYCIN 500 MG in DEXTROSE 5% 250 ML IV SCH (10:09)
[2018-09-24] MEDS: ASPIRIN 81 MG TAB.CHEW PO SCH (10:09)
[2018-09-24] MEDS: amLODIPine 5 MG TAB PO SCH (10:09)
--- NOTE | 2018-09-24 10:10 | NUR ---
PT IS AWAKE AND SEATED ON THE BED, WATCHING TV, VITAL SIGNS CHECKED AND BP IS 138/57, PULSE IS 70, O2 SATURATION IS 97%,ORAL AND IV MEDICATIONS WERE GIVEN TO PT AND PT TOLERATED IT. NO SIGN OF DISTRESS NOTED. WILL CONTINUE TO MONITOR PT.
[2018-09-24 12:00] VITALS: BP 158/73
--- NOTE | 2018-09-24 13:46 | NUR ---
DISCHARGED PT TO HOME VIA WHEELCHAIR WITH SISTER, TEACHINGS AND INSTRUCTIONS WERE GIVEN TO PT AND VERBALIZED UNDERSTANDING, IV LINE AND ARM BANDS REMOVED. PT IS STABLE AT [facility] TIME
== END 2018-09-24 13:46 | disposition home or self-care (01) | DRG 871 ==
LOC: MED 12:55 → MTU 16:55
PROVIDERS: ADMIT Internal Medicine Pulmonary Disease; ATTEND Internal Medicine Pulmonary Disease
DX: A41.9 Sepsis, unspecified organism (principal); J18.9 Pneumonia, unspecified organism; E87.1 Hypo-osmolality and hyponatremia; N39.0 Urinary tract infection, site not specified; E86.0 Dehydration; E03.9 Hypothyroidism, unspecified; Z87.891 Personal history of nicotine dependence; E87.6 Hypokalemia; I10 Essential (primary) hypertension; J45.909 Unspecified asthma, uncomplicated; Z90.710 Acquired absence of both cervix and uterus; Z88.2 Allergy status to sulfonamides; Z88.1 Allergy status to other antibiotic agents; Z91.040 Latex allergy status; Z98.49 Cataract extraction status, unspecified eye
CPT/HCPCS: 36415; 36600; 71045; 80048; 80053; 81001; 82803; 82948; 83605; 83735; 83880; 84443; 84484; 85025; 85610; 85730; 87040; 87081; 87086; 87186; 93005; 96361; 96365; 96367; 96368; 97161-GP; 99291; J0456; J0696; J1200; J2001; J3475; J3480; J7030; J7060

== ENCOUNTER 2018-10-09 14:04 | Observation (INO) | payer OTHER ==
[~2018-10-09] VITALS: Ht 152.4 cm; Wt 64.4 kg
[~2018-10-09 14:04] MED LIST changes: +AMLO5TAB PO; -APIX2.5 PO; -CEFD300C3 PO; +CEPH250C16 PO; -DOXY100C9 PO; +OMEP20TC12 PO; -PANT40EC28 PO; -PRED20TA5 PO
[2018-10-09 14:05] VITALS: BP 192/105
--- NOTE | 2018-10-09 14:11 | NUR ---
PT AMBULATED TO BED 1
--- NOTE | 2018-10-09 14:21 | NUR ---
PATIENT PRESENTS TO ED WITH C/O R EAR PAIN X1 WEEK. TOOK MOTRIN WITH NO RELIEF. PAIN 10/21. PT DENIES N/V/D; SKIN IS PINK/WARM/DRY; AAOX4 WITH EVEN AND STEADY GAIT; LUNGS CLEAR BL; HR EVEN AND REGULAR; PT DENIES ANY FEVER, CP, SOB, OR COUGH AT THIS TIME; ER MD TO EVALUATE PT.
--- NOTE | 2018-10-09 15:33 | NUR ---
STREP SPECIMEN COLLECTED
--- NOTE | 2018-10-09 15:37 | NUR ---
PT AMBULATED TO RESTROOM TO PROVIDE URINE SAMPLE
[2018-10-09 15:57] LABS: BASOPHILS # (AUTO) 0.1 K/uL (0.00-0.22); BASOPHILS % (AUTO) 1.2 % (0.0-2.0); EOSINOPHILS # (AUTO) 0.2 K/uL (0-0.4); EOSINOPHILS % (AUTO) 1.2 % (0.0-4.0); HEMATOCRIT 41.4 % (36-48); HEMOGLOBIN 14.5 g/dL (12.0-16.0); LYMPHOCYTES # (AUTO) 1.4 K/uL (2.5-16.5); LYMPHOCYTES % (AUTO) 11.3 % (20.5-51.1); MEAN CORPUSCULAR HEMOGLOBIN 31 pg (27-31); MEAN CORPUSCULAR HGB CONC 35 g/dL (33-37); MEAN CORPUSCULAR VOLUME 88.8 fL (80-94); MONOCYTES # (AUTO) 0.6 K/uL (0.8-1.0); MONOCYTES % (AUTO) 5.1 % (1.7-9.3); NEUTROPHILS # (AUTO) 10.2 K/uL (1.8-7.7); NEUTROPHILS % (AUTO) 81.2 % (42.2-75.2); PLATELET COUNT (AUTO) 326 K/uL (140-450); RED BLOOD CELL COUNT(AUTO) 4.65 MIL/uL (4.20-5.40); RED CELL DISTRIBUTION WIDTH 15.4 % (11.6-13.7); WHITE BLOOD COUNT (AUTO) 12.5 K/uL (4.8-10.8)
[2018-10-09 16:01] LABS: APPEARANCE,URINE CLEAR (CLEAR); BILIRUBIN,URINE NEGATIVE (NEGATIVE); BLOOD, URINE NEGATIVE (NEGATIVE); COLOR,URINE YELLOW (YELLOW); LEUKOCYTE ESTERASE ,URINE NEGATIVE (NEGATIVE); NITRITE, URINE NEGATIVE (NEGATIVE); PH,URINE 6.5 (5.0-9.0); UGLUCOSE NEGATIVE (NEGATIVE)
--- NOTE | 2018-10-09 16:22 | NUR ---
PT RESTING IN BED, GAVE HER A GLASS OF WATER PER REQUEST
[2018-10-09 16:25] LABS: ALBUMIN 3.6 g/dL (3.4-5.0); ANION GAP 13.2 (8-16); ASPARTATE AMINOTRANSFERASE 28 U/L (15-37); CHLORIDE 92 mmol/L (98-107); CREATININE 1.2 mg/dL (0.6-1.3); GLUCOSE 108 mg/dL (74-106); SODIUM SERUM 137 mmol/L (136-145); THYROID STIMULATING HORMONE 12.46 uIU/mL (0.34-3.74); TOTAL BILIRUBIN 1.5 mg/dL (0.0-1.0); UREA NITROGEN, BLOOD 6 mg/dL (7-18)
[2018-10-09 16:30] LABS: POTASSIUM 2.2 mmol/L (3.5-5.1)
[2018-10-09] MEDS ORDERED: POTASSIUM CHL 20 MEQ/NACL 0.9% 1,000 ML IV ONE (16:40)
[2018-10-09] MEDS ORDERED: POTASSIUM CHL 20 MEQ/NACL 0.9% 1,000 ML IV SCH (17:00)
[2018-10-09] MEDS ORDERED: MORPHINE SULFATE 4 MG/ML SYR IVP PRN (18:35)
[2018-10-09] MEDS ORDERED: MAG SULF 2000 MG/WATER PREMIX 50 ML IV ONE ×2 (18:35→23:29)
[2018-10-09] MEDS ORDERED: MORPHINE SULFATE 2 MG/ML SYR IVP PRN (18:35)
[2018-10-09] MEDS ORDERED: LORazepam 2 MG/ML VIAL IVP PRN (18:35)
[2018-10-09] MEDS ORDERED: ALBUTEROL SULFATE/IPRATROPIU 3 ML SOL IH PRN (18:40)
[2018-10-09] MEDS ORDERED: ZOLPIDEM 5 MG TAB PO PRN (18:50)
--- NOTE | 2018-10-09 19:05 | NUR ---
RECEIVED REPORT FROM ER NURSE. AWAKE, ALERT AND ORIENTED ABLE TO VERBALIZE NEEDS. SKIN INTACT. AMBULATORY, STEADY GAIT. PT HAS LEFT THUMB 24G INTACT AND INFUSING WELL. SAFETY MEASURES IN PLACE. PT ORIENTED ON HOW TO USE CALL LIGHT. CALL LIGHT WITHIN REACH. WILL CONTINUE TO MONITOR.
--- NOTE | 2018-10-09 19:13 | NUR ---
Patient will be admitted to care of DR. UGALDE. Admited to TELE. Will go to room 107A. Belongings list completed. Report to LYNETTEMARIETTA.
[2018-10-09] MEDS: POTASSIUM CHLORIDE 10 MEQ TABER PO SCH ×2 (20:11→23:23)
[2018-10-09 20:20] VITALS: BP 195/95
--- NOTE | 2018-10-09 20:42 | NUR ---
2035 DR UGALDE CALLED REGARDING PT BP OF 195/95. PT REFUSES TO TAKE METOPROLOL PO. DR UGALDE GAVE ORDERS TO SWITCH TO VASOTEC. Addendum: 10/10/18 at 0129 by Elise Murray RN PER REPORT FROM ER, PHARMACY QUESTIONING THE ADMINISTRATION OF IV MAGNESIUM DUE TO NO MAG LAB VALUES PRESENT. DR. UGALDE CONSULTED TO ADMINISTER IV MAGNESIUM WITHOUT LAB VALUES. PER DR. TRAM GOODWIN TO GIVE IV MAGNESIUM.
[2018-10-09] MEDS ORDERED: cloNIDine 0.1 MG TAB PO PRN (20:45)
[2018-10-09] MEDS ORDERED: METOPROLOL 25 MG TAB PO SCH (21:00)
[2018-10-09] MEDS ORDERED: cefTRIAXone 1,000 MG VIAL ONE (21:44)
[2018-10-09] MEDS: ENALAPRIL 10 MG TAB PO SCH (21:48)
--- NOTE | 2018-10-09 21:48 | NUR ---
PT RECEIVED VASOTEC AND ROCEPHIN AT THIS TIME. PT TOLERATED WELL.
[2018-10-09] MEDS ORDERED: ACETAMINOPHEN 325 MG TAB PO PRN (22:45)
--- NOTE | 2018-10-09 23:23 | NUR ---
K-DUR 40 MEQ PO ADMINISTERED TO PT. TYLENOL ADMINISTERED TO PT FOR EAR ACHE. PT TOLERATED WELL.
--- NOTE | 2018-10-09 23:25 | NUR ---
MAGNESIUM 2G HUNG AT THIS TIME. PT COMPLAINING OF BURNING AT IV SITE. IV OF NS HUNG TO HELP ADMINISTRATION OF THE MAG.
--- NOTE | 2018-10-09 23:30 | NUR ---
BP REASSESSED. BP 108/57 AT THIS TIME.
[2018-10-09] MEDS: ONDANSETRON 4 MG/2 ML VIAL IVP PRN (23:48)
--- NOTE | 2018-10-09 23:48 | NUR ---
PT C/O NAUSEA. ZOFRAN GIVEN AT THIS TIME. PT STATED THAT SHE "HASN'T EATTEN ALL NIGHT." PT ENCOURAGED TO EAT SOME FOOD. PT BROUGHT PUDDING AND GRAM CRACKERS.
[2018-10-10] VITALS: BP 108/57
--- NOTE | 2018-10-10 00:40 | NUR ---
PT STILL C/O NAUSEA. PT BELIEVES THAT THE MAGNESIUM IS MAKING HER NAUSEOUS. MAG STOPPED AT THIS TIME. PT BROUGHT SANDWICH AND ENCOURAGED TO EAT SOMETHING. PT IS AGREEABLE. WILL CONTINUE TO MONITOR.
--- NOTE | 2018-10-10 01:20 | NUR ---
PT IS REFUSING TO CONTINUE IV MAGNESIUM. WILL ENDORSE TO DAY SHIFT. NO MAGNESIUM LABORATORY VALUES AT THIS TIME. WILL ENDORSE TO DAY SHIFT.
--- NOTE | 2018-10-10 03:20 | NUR ---
ROUNDED ON PT. PT SLEEPING, NO VISIBLE SIGNS OF DISTRESS. BREATHING EQUAL AND UNLABORED. WILL CONTINUE TO MONITOR.
[2018-10-10] MEDS: POTASSIUM CHLORIDE 10 MEQ TABER PO SCH ×2 (04:00→08:27)
[2018-10-10 04:16] VITALS: BP 112/52
[2018-10-10] MEDS ORDERED: LEVOTHYROXINE 0.088 MG TAB PO SCH (06:30)
[2018-10-10] MEDS ORDERED: LEVOTHYROXINE 0.075 MG TAB PO SCH (06:30)
[2018-10-10 07:05] LABS: ALBUMIN 2.6 g/dL (3.4-5.0); ANION GAP 12.7 (8-16); ASPARTATE AMINOTRANSFERASE 19 U/L (15-37); CARBON DIOXIDE 30.4 mmol/L (21-32); CHLORIDE 97 mmol/L (98-107); CREATININE 1.4 mg/dL (0.6-1.3); GLUCOSE 115 mg/dL (74-106); MAGNESIUM 2.4 mg/dL (1.8-2.4); POTASSIUM 3.1 mmol/L (3.5-5.1); SODIUM SERUM 137 mmol/L (136-145); TOTAL BILIRUBIN 0.5 mg/dL (0.0-1.0); UREA NITROGEN, BLOOD 8 mg/dL (7-18)
[2018-10-10 07:37] LABS: BASOPHILS # (AUTO) 0.1 K/uL (0.00-0.22); BASOPHILS % (AUTO) 0.8 % (0.0-2.0); EOSINOPHILS # (AUTO) 0.3 K/uL (0-0.4); EOSINOPHILS % (AUTO) 2.4 % (0.0-4.0); HEMATOCRIT 33.9 % (36-48); HEMOGLOBIN 11.8 g/dL (12.0-16.0); LYMPHOCYTES # (AUTO) 1.7 K/uL (2.5-16.5); MEAN CORPUSCULAR HEMOGLOBIN 31 pg (27-31); MEAN CORPUSCULAR HGB CONC 35 g/dL (33-37); MEAN CORPUSCULAR VOLUME 89.6 fL (80-94); MONOCYTES # (AUTO) 0.7 K/uL (0.8-1.0); MONOCYTES % (AUTO) 6.5 % (1.7-9.3); NEUTROPHILS # (AUTO) 7.8 K/uL (1.8-7.7); NEUTROPHILS % (AUTO) 74.3 % (42.2-75.2); PLATELET COUNT (AUTO) 274 K/uL (140-450); RED BLOOD CELL COUNT(AUTO) 3.78 MIL/uL (4.20-5.40); RED CELL DISTRIBUTION WIDTH 15.2 % (11.6-13.7); WHITE BLOOD COUNT (AUTO) 10.5 K/uL (4.8-10.8)
--- NOTE | 2018-10-10 08:07 | NUR ---
RECEIVED HANDOFF REPORT FROM RESEARCH COORDINATOR NURSE PT IS AWAKE IN BED PT APPEARS STABLE AND IN NO APPARENT DISTRESS. ALL SAFETY MEASURES ARE IN PLACE. WILL CONTINUE TO MONITOR.
[2018-10-10 08:18] VITALS: BP 125/63
[2018-10-10] MEDS: ENALAPRIL 10 MG TAB PO SCH (08:26)
[2018-10-10] MEDS ORDERED: amLODIPine 5 MG TAB PO SCH (09:00)
[2018-10-10] MEDS ORDERED: ASPIRIN 81 MG TAB.CHEW PO SCH (09:00)
[2018-10-10] MEDS: ONDANSETRON 4 MG/2 ML VIAL IVP PRN (09:13)
--- NOTE | 2018-10-10 09:30 | NUR ---
PT COMPLAINED ABOUT NAUSEA. PT STATED SHE THINKS ITS FROM THE AMOUNT OF PO MEDICATIONS SHE TOOK THIS MORNING. PT REQUESTED MEDICATION FOR NAUSEA. ADMINISTERED ZOFRAN PER DR ORDERS. WILL CONTINUE TO MONITOR.
--- NOTE | 2018-10-10 10:06 | NUR ---
REASSESSED ZOFRAN. PT STATED THAT SHE IS BETTER AND DOES NOT HAVE ANY NAUSEA
[2018-10-10] MEDS ORDERED: AMOX-999 PO (10:33)
--- NOTE | 2018-10-10 11:15 | NUR ---
FREQUENT ROUNDING ON PT PT IS STABLE AND IN NO APPARENT DISTRESS. ALL SAFETY MEASURES ARE IN PLACE AND WILL CONTINUE TO MONITOR.
[2018-10-10 12:43] VITALS: BP 125/63
[2018-10-10] MEDS ORDERED: POTASSIUM CHLORIDE 10 MEQ TABER PO SCH (12:45)
--- NOTE | 2018-10-10 13:05 | NUR ---
REMOVED IV IV TIP INTACT. REMOVED ARM BAND. INFORMED PT ABOUT NEW PRESCRIPTIONS AND PROVIDED PRESCRIPTION INFORMED PT TO FOLLOW UP WITH PRIMARY CARE PROVIDER. PT LEFT VIA WHEELCHAIR. PT LEFT WITH ALL PERSONAL BELONGINGS
== END 2018-10-10 13:40 | disposition home or self-care (01) ==
LOC: MED 14:04 → INTOOBSV 18:39 → MTU 18:39
PROVIDERS: ADMIT Internal Medicine Pulmonary Disease; ATTEND Internal Medicine Pulmonary Disease
DX: B34.9 Viral infection, unspecified (principal); E03.9 Hypothyroidism, unspecified; I10 Essential (primary) hypertension; N39.0 Urinary tract infection, site not specified; J02.9 Acute pharyngitis, unspecified; R11.2 Nausea with vomiting, unspecified; R19.7 Diarrhea, unspecified; J40 Bronchitis, not specified as acute or chronic; E87.6 Hypokalemia
CPT/HCPCS: 36415; 71045; 80053; 81003; 83735; 84439; 84443; 84484; 85025; 87081; 93005; 94760; 96365; 96366; 96367; 96375; 96376; 99285; G0378; J0696; J2405; J3475; J7030; J7060; Q0092; 96360; 96361

== ENCOUNTER 2018-10-28 12:16 | Observation (INO) | payer OTHER ==
[~2018-10-28] VITALS: Ht 152.4 cm; Wt 64.0 kg
[~2018-10-28 12:16] MED LIST changes: +AMOX-999 PO; -CEPH250C16 PO
[2018-10-28 12:39] VITALS: BP 224/124
--- NOTE | 2018-10-28 13:09 | NUR ---
Patient ambulated to bed 2. RN evaluating patient at bedside.
--- NOTE | 2018-10-28 13:15 | NUR ---
PT IS A 73 Y/O FEMALE WHO PRESENTS TO THE ED C/O HYPERTENSION. PER PT CAME FROM URGENT AND GIVEN DX OF SINUS INFECTION. BUT REPORTS BP WAS HIGH AND REFERRED TO ED. BP ON TRIAGE 224/124. PT REPORTS D/C OF HOME MEDS D/T TOO MANY SIDE EFFECTS. PT REPORTS 8/10 ACHING HEADACHE AT THIS. PT REPORTS MILD BLURRY VISION, DENIES N/V/D, CP, SOB. PT AWAKE AND ALERT, RR EVEN/UNLABORED. PT REPOSITIONED FOR COMFORT, BED IN LOWEST POSITION. ER MD DR. FLEMING NOTIFIED. WILL CONTINUE TO MONITOR. MEDHX:HTN, HYPOTHYROID RX:DENIES
--- NOTE | 2018-10-28 13:42 | NUR ---
Dr. Kruger evaluating patient at bedside.
[2018-10-28] MEDS ORDERED: MECLIZINE 25 MG TAB PO ONE (13:45)
[2018-10-28 14:31] LABS: BASOPHILS # (AUTO) 0.2 K/uL (0.00-0.22); BASOPHILS % (AUTO) 1.5 % (0.0-2.0); EOSINOPHILS # (AUTO) 0.2 K/uL (0-0.4); EOSINOPHILS % (AUTO) 1.5 % (0.0-4.0); HEMATOCRIT 39.4 % (36-48); HEMOGLOBIN 13.7 g/dL (12.0-16.0); LYMPHOCYTES # (AUTO) 1.1 K/uL (2.5-16.5); LYMPHOCYTES % (AUTO) 10.4 % (20.5-51.1); MEAN CORPUSCULAR HEMOGLOBIN 32 pg (27-31); MEAN CORPUSCULAR HGB CONC 35 g/dL (33-37); MEAN CORPUSCULAR VOLUME 91.6 fL (80-94); MONOCYTES # (AUTO) 0.5 K/uL (0.8-1.0); MONOCYTES % (AUTO) 4.9 % (1.7-9.3); NEUTROPHILS # (AUTO) 8.6 K/uL (1.8-7.7); NEUTROPHILS % (AUTO) 81.7 % (42.2-75.2); PLATELET COUNT (AUTO) 340 K/uL (140-450); RED CELL DISTRIBUTION WIDTH 16.2 % (11.6-13.7); WHITE BLOOD COUNT (AUTO) 10.5 K/uL (4.8-10.8)
[2018-10-28 14:49] LABS: PROTHROMBIN TIME 9.9 secs (10.8-13.4)
[2018-10-28 15:09] LABS: CARBON DIOXIDE 30.3 mmol/L (21-32); CHLORIDE 100 mmol/L (98-107); CREATININE 1.1 mg/dL (0.6-1.3); GLUCOSE 99 mg/dL (74-106); POTASSIUM 3.3 mmol/L (3.5-5.1); SODIUM SERUM 141 mmol/L (136-145); UREA NITROGEN, BLOOD 5 mg/dL (7-18)
[2018-10-28 15:15] LABS: ALBUMIN 3.5 g/dL (3.4-5.0); ASPARTATE AMINOTRANSFERASE 21 U/L (15-37); TOTAL BILIRUBIN 1.5 mg/dL (0.0-1.0)
[2018-10-28] MEDS ORDERED: cloNIDine 0.1 MG TAB PO ONE (15:30)
[2018-10-28] MEDS ORDERED: MAG SULF 2000 MG/WATER PREMIX 50 ML IV ONE (15:50)
[2018-10-28 16:04] LABS: APPEARANCE,URINE HAZY (CLEAR); BILIRUBIN,URINE NEGATIVE (NEGATIVE); BLOOD, URINE NEGATIVE (NEGATIVE); COLOR,URINE YELLOW (YELLOW); LEUKOCYTE ESTERASE ,URINE NEGATIVE (NEGATIVE); NITRITE, URINE NEGATIVE (NEGATIVE); PH,URINE 6.5 (5.0-9.0); UGLUCOSE NEGATIVE (NEGATIVE)
[2018-10-28] MEDS ORDERED: NITROGLYCERIN 0.4 MG TAB SL PRN (18:10)
[2018-10-28] MEDS ORDERED: MORPHINE SULFATE 2 MG/ML SYR IV PRN (18:10)
[2018-10-28] MEDS ORDERED: ONDANSETRON 4 MG/2 ML VIAL IVP PRN (18:10)
--- NOTE | 2018-10-28 18:51 | NUR ---
RECEIVED BED SIDE REPORT FROM PERMIT COORDINATOR. PT IN STABLE CONDITION. ON RA IN NO RESP DISTRESS, APPEARS IN NO PAIN, AMBULATORY, LAST BP WAS 148/78, PT SALINE LOCK, A/0 X4, WILL ENDORSE PT TO OIL FIELD EQUIPMENT MECHANIC RN
--- NOTE | 2018-10-28 18:52 | NUR ---
Patient admitted to care of Dr Guerra. Admited to Telemetry Room 125A.Belongings list completed. Report to MARIETAT Tavarez. Pt in stable condition; transfer of care at this time.
[2018-10-28 19:21] VITALS: BP 130/90
--- NOTE | 2018-10-28 19:21 | NUR ---
RECIEVED PT AAOX4 ,NID , ON SALINE LOCK- INTACT AND PATENT , WITH BEARABLE HEADACHE SHE SAID , BED IN LOW POSITION, SIDERAILS UP X2 , CALL LIGHT WITHIN REACH ,PLAN OF CARE DISCUSSED AND VERBALIZE UNDERSTANDING , WILL CONTINUE TO MONITOR.
--- NOTE | 2018-10-28 19:21 | NUR ---
GAVE BED SIDE REPORT. GABRIELA TONG
--- NOTE | 2018-10-28 19:21 | NUR ---
RECIEVED PT AAOX4 , NID WITH NO FURTHER COMPLAIN MADE DURING THIS TIME , ON SALINE LOCK INTACT AND PATENT . PLAN OF CARE DISCUSSED AND VERBALIZE UNDERSTANDING. BED IN LOW POSITION , SIDERAILS UPX2 CALL LIGHT WITHIN REACH . MRSA SPECIMEN COLLECTED AND SENT TO LAB . ADMISSION ASSESSMENT DONE , WILL CONTINUE TO MONITOR.
--- NOTE | 2018-10-28 22:00 | NUR ---
MADE ROUNDS , PT SAID SHE HAS BEARABLE HEADACHE , NO FURTHER COMPLAIN MADE .CALL LIGHT WITHIN REACH.WILL CONTINUE TO FOLLOW UP , OFFER MORPHINE SO4 BUT REFUSED , INFORM DR NORMAN THRU PAGE /TEL BUT NO CALL BACK.
[2018-10-29] VITALS: BP 130/90
--- NOTE | 2018-10-29 | NUR ---
MADE ROUNDS , RESPIRATION EVEN AND UNLABORED , V/S WNL , PT SAID THE HEADACHE IS ALMOST GONE , WILL CONTINUE TO MONITOR.,CALL LIGHT WITHIN REACH
--- NOTE | 2018-10-29 02:00 | NUR ---
PT IV SITE CLOGGED AND PT COMPLAINING OF PAIN AT IV SITE - INFLAMMED PULL OUT THE IV CANNULLA - INTACT NEEDLE - MINIMAL BLEEDING - RE INSERT IV CANNULLA - PROCEDURE TOLERATED WELL . WILL CONT. TO MONITOR. CALL LIGHT WITHIN REACH
--- NOTE | 2018-10-29 04:00 | NUR ---
MADE ROUNDS V/S WNL . NID , NO COMPLAIN MADE AT THIS TIME , WILL CONT. TO MONITOR . CALL LIGHT WITHIN REACH.
[2018-10-29 04:28] VITALS: BP 133/74
--- NOTE | 2018-10-29 07:25 | NUR ---
ENDORSED TO AM SHIFT NURSE WITH STABLE CONDITION.
--- NOTE | 2018-10-29 07:26 | NUR ---
RECEIVED REPORT FROM SHUTTLER CAR NURSE. AAOX4, CALM AND COOPERATIVE, LYING IN BED. NO C/O PAIN AT THIS TIME. IV ON RT FA 24 GA ON SALINE LOCK, FLUSHING WITH NO RESISTANCE, DRESSING CLEAN, DRY AND INTACT. SKIN IS INTACT, WARM TO TOUCH. SAFETY MEASURES IN PLACE. CALL LIGHT WITHIN REACH. REVIEWED POC WITH PT, PT VERBALIZED UNDERSTANDING. WILL CONTINUE TO MONITOR.
[2018-10-29 07:30] LABS: ANION GAP 13.5 (8-16); BASOPHILS # (AUTO) 0.1 K/uL (0.00-0.22); BASOPHILS % (AUTO) 1.3 % (0.0-2.0); CARBON DIOXIDE 27.8 mmol/L (21-32); CHLORIDE 101 mmol/L (98-107); CREATININE 1.3 mg/dL (0.6-1.3); EOSINOPHILS # (AUTO) 0.3 K/uL (0-0.4); EOSINOPHILS % (AUTO) 3.3 % (0.0-4.0); GLUCOSE 87 mg/dL (74-106); HEMATOCRIT 34.1 % (36-48); HEMOGLOBIN 11.9 g/dL (12.0-16.0); LYMPHOCYTES # (AUTO) 1.4 K/uL (2.5-16.5); LYMPHOCYTES % (AUTO) 15.3 % (20.5-51.1); MEAN CORPUSCULAR HEMOGLOBIN 32 pg (27-31); MEAN CORPUSCULAR HGB CONC 35 g/dL (33-37); MEAN CORPUSCULAR VOLUME 91.7 fL (80-94); MONOCYTES # (AUTO) 0.5 K/uL (0.8-1.0); MONOCYTES % (AUTO) 5.7 % (1.7-9.3); NEUTROPHILS % (AUTO) 74.4 % (42.2-75.2); PLATELET COUNT (AUTO) 297 K/uL (140-450); POTASSIUM 3.3 mmol/L (3.5-5.1); RED BLOOD CELL COUNT(AUTO) 3.72 MIL/uL (4.20-5.40); RED CELL DISTRIBUTION WIDTH 16.2 % (11.6-13.7); SODIUM SERUM 139 mmol/L (136-145); UREA NITROGEN, BLOOD 9 mg/dL (7-18); WHITE BLOOD COUNT (AUTO) 9.4 K/uL (4.8-10.8)
--- NOTE | 2018-10-29 07:57 | NUR ---
PT GIVEN LISINOPRIL PER ORDER. BP 173/68, WILL REASSESS AT A LATER TIME.
[2018-10-29 08:00] VITALS: BP 173/68
--- NOTE | 2018-10-29 08:59 | NUR ---
PATIENT HAS BEEN SCREENED AND CATEGORIZED MODERATE NUTRITION RISK. PATIENT WILL BE SEEN WITHIN 3-5 DAYS OF ADMISSION. 10/31/18 11/02/[address]
[2018-10-29] MEDS ORDERED: LISINOPRIL 20 MG TAB PO ONE (09:00)
--- NOTE | 2018-10-29 09:15 | NUR ---
PT HAS NO SIGNS OF DISTRESS, RESTING IN BED. BP CHECKED AT 137/67 AT THIS TIME. WILL CONTINUE TO MONITOR.
[2018-10-29 12:00] VITALS: BP 117/52
--- NOTE | 2018-10-29 12:15 | NUR ---
DR. NORMAN AT BEDSIDE. PT QUESTIONS WERE CLARIFIED. PT HAS NO SIGNS OF DISTRESS AT THIS TIME. WILL CONTINUE TO MONITOR.
--- NOTE | 2018-10-29 12:40 | NUR ---
PT SITTING UP IN BED, EATING LUNCH. NO SIGNS OF DISTRESS.
--- NOTE | 2018-10-29 13:02 | NUR ---
GIVEN PITCHER OF WATER PER PT REQUEST. RESPIRATIONS EVEN AND UNLABORED ON RA.
--- NOTE | 2018-10-29 15:15 | NUR ---
PT HAS BEEN DISCHARGED. ALL PAPERWORK SIGNED, ALL QUESTIONS ANSWERED. ALL BELONGINGS AND PRESCRIPTIONS IN PT POSSESSION. DISCONTINUE IV, CATHETER IS INTACT, NO ACTIVE BLEEDING NOTED. WRISTBANDS AND TELE MONITOR REMOVED. PT WAS TRANSFERRED OUT OF UNIT VIA WHEELCHAIR ASSISTED BY MARIETTA KAY. PATIENT IN STABLE CONDITION AT THIS TIME.
== END 2018-10-29 17:59 | disposition still patient (30) ==
LOC: MED 12:16 → MMU 18:10 → INTOOBSV 18:10
PROVIDERS: ADMIT Internal Medicine Pulmonary Disease; ATTEND Internal Medicine Pulmonary Disease
DX: I16.0 Hypertensive urgency (principal); R07.89 Other chest pain; I10 Essential (primary) hypertension; E03.9 Hypothyroidism, unspecified; Z91.19 Patient's noncompliance with other medical treatment and regimen
CPT/HCPCS: 36415; 70450; 71045; 80048; 80053; 81003; 83735; 84484; 85025; 85610; 87081; 93005; 96365; 96366; 99285; G0378; J2270; J3475; J8597; Q0092